=== PATIENT | male | born 1965 | race Native Hawaiian/Other Pacific Islander ===

== ENCOUNTER → 2016-12-02 | Outpatient (CLI) | payer OTHER ==
--- NOTE | 2016-12-04 08:13 | XR ---
EXAMINATION TYPE: XR chest 2V DATE OF EXAM: 12/02/2016 COMPARISON: 09/14/2013 TECHNIQUE: PA and lateral views submitted. HISTORY: Shortness of breath FINDINGS: The lungs are clear and there is no pneumothorax, pleural effusion, or focal pneumonia. Biapical pl eural thickening. Arthropathy shoulders. Degenerative change of the spine. IMPRESSION: 1. No acute process.
== END | disposition home or self-care (01) ==
LOC: RADXRMAIN 12:01
PROVIDERS: ATTEND Internal Medicine
DX: R06.00 Dyspnea, unspecified (principal); R07.9 Chest pain, unspecified
CPT/HCPCS: 71020

== ENCOUNTER 2020-07-27 06:59 | Observation (INO) | payer OTHER ==
[2020-07-27 07:09] VITALS: PULSE 77; RESP 18; TEMP 98.8
[2020-07-27] MEDS ORDERED: KETOROLAC 15 MG/ML 1 ML VIAL IVP STA (07:23)
--- NOTE | 2020-07-27 07:25 | ED ---
General Adult HPI - General Chief complaint: Extremity Injury, Lower Stated complaint: Feet swelling Time Seen by Provider: 07/27/20 07:11 Source: patient, RN notes reviewed Mode of arrival: wheelchair Limitations: no limitations - History of Present Illness Initial comments: This is a 55-year-old male with a necessity benign past medical history states she's had about one week pain and swelling to the lower extremities left more than right he states he is up and down ladders quite a bit sure. She had any injuries and he did state he heard a pop in his left foot prior to the events. He's had swelling and does have somewhat of a rash on both sides his doctor did start him on steroids which did not help. He denies any fevers chills nausea vomiting sweats no known autoimmune disorders other complaints or modifying factors at this time tenderness reported. - Related Data Home Medications Medication Instructions Recorded Confirmed Cetirizine HCl [Zyrtec] 10 mg PO DAILY PRN 07/27/20 07/27/20 Metoprolol Succinate [Toprol XL] 50 mg PO DAILY 07/27/20 07/27/20 methylPREDNISolone Dose Pack See Taper PO DAILY 07/27/20 07/27/20 [Medrol Dose Pack] Allergies Allergy/AdvReac Type Severity Reaction Status Date / Time No Known Allergies Allergy Verified 07/27/20 07:49 Review of Systems ROS Statement: Those systems with pertinent positive or pertinent negative responses have been documented in the HPI. ROS Other: All systems not noted in ROS Statement are negative. Past Medical History Past Medical History: Hyperlipidemia, Hypertension Additional Past Medical History / Comment(s): back pain History of Any Multi-Drug Resistant Organisms: None Reported Past Surgical History: No Surgical Hx Reported Past Psychological History: No Psychological Hx Reported Smoking Status: Current every day smoker, Vaper Past Alcohol Use History: Occasional Past Drug Use History: Marijuana General Exam - General Exam Comments Initial Comments: This is a well-developed sec appearing male who is awake alert oriented 3 Limitations: no limitations General appearance: alert, in no apparent distress Head exam: Present: atraumatic, normocephalic, normal inspection Eye exam: Present: normal appearance, PERRL, EOMI. Absent: scleral icterus, conjunctival injection, periorbital swelling ENT exam: Present: normal exam, mucous membranes moist Neck exam: Present: normal inspection. Absent: tenderness, meningismus, lymphadenopathy Respiratory exam: Present: normal lung sounds bilaterally. Absent: respiratory distress, wheezes, rales, rhonchi, stridor Cardiovascular Exam: Present: regular rate, normal rhythm, normal heart sounds. Absent: systolic murmur, diastolic murmur, rubs, gallop, clicks GI/Abdominal exam: Absent: distended, tenderness, guarding, rebound, rigid Extremities exam: Present: full ROM, tenderness, normal capillary refill, pedal edema, other (Tenderness palpation over both feet especially over the left lung with some increased localized temperature. Some evidence of what appears to be coalescing petechial hemorrhaging no open wound seen at this time. No sensorimotor vascular deficits). Absent: joint swelling, calf tenderness Back exam: Present: normal inspection Neurological exam: Present: alert, oriented X3, CN II-XII intact Psychiatric exam: Present: normal affect, normal mood Skin exam: Present: warm, dry, intact, normal color. Absent: rash Course Vital Signs 07/27/20 07/27/20 07:05 08:57 Temperature 98.8 F Pulse Rate 77 Respiratory 18 18 Rate Blood Pressure 168/108 154/113 O2 Sat by Pulse 99 Oximetry Medical Decision Making - Medical Decision Making I did discuss the findings with the patient and also with Dr. Paz the clinical presentation is consistent with a cellulitis patient will be admitted [facility] and consultation by infectious disease - Lab Data Result diagrams: 07/27/20 07:45 07/27/20 07:45 Lab Results 07/27/20 07/27/20 07/27/20 Range/Units 07:45 07:45 07:45 WBC 12.1 H (3.8-10.6) k/uL RBC 6.50 H (4.30-5.90) m/uL Hgb 14.0 (13.0-17.5) gm/dL Hct 43.5 (39.0-53.0) % MCV 66.9 L (80.0-100.0) fL MCH 21.5 L (25.0-35.0) pg MCHC 32.1 (31.0-37.0) g/dL RDW 15.7 H (11.5-15.5) % Plt Count 223 (150-450) k/uL MPV 7.8 Neutrophils % 65 % Lymphocytes % 22 % Monocytes % 10 % Eosinophils % 2 % Basophils % 0 % Neutrophils # 7.8 H (1.3-7.7) k/uL Lymphocytes # 2.6 (1.0-4.8) k/uL Monocytes # 1.2 H (0-1.0) k/uL Eosinophils # 0.3 (0-0.7) k/uL Basophils # 0.1 (0-0.2) k/uL Hypochromasia Slight Microcytosis Marked Sodium 139 (137-145) mmol/L Potassium 4.1 (3.5-5.1) mmol/L Chloride 107 (98-107) mmol/L Carbon Dioxide 24 (22-30) mmol/L Anion Gap 8 mmol/L BUN 17 (9-20) mg/dL Creatinine 0.86 (0.66-1.25) mg/dL Est GFR (CKD-EPI)AfAm >90 (>60 ml/min/1.73 sqM) Est GFR (CKD-EPI)NonAf >90 (>60 ml/min/1.73 sqM) Glucose 99 (74-99) mg/dL Uric Acid (3.5-8.5) mg/dL Calcium 9.2 (8.4-10.2) mg/dL Magnesium 2.3 (1.6-2.3) mg/dL Total Bilirubin 1.0 (0.2-1.3) mg/dL AST 26 (17-59) U/L ALT 20 (4-49) U/L Alkaline Phosphatase 68 (38-126) U/L Creatine Kinase 99 (55-170) U/L C-Reactive Protein 1.8 H (<1.0) mg/dL NT-Pro-B Natriuret Pep 92 pg/mL Total Protein 7.3 (6.3-8.2) g/dL Albumin 4.1 (3.5-5.0) g/dL 07/27/20 Range/Units 07:45 WBC (3.8-10.6) k/uL RBC (4.30-5.90) m/uL Hgb (13.0-17.5) gm/dL Hct (39.0-53.0) % MCV (80.0-100.0) fL MCH (25.0-35.0) pg MCHC (31.0-37.0) g/dL RDW (11.5-15.5) % Plt Count (150-450) k/uL MPV Neutrophils % % Lymphocytes % % Monocytes % % Eosinophils % % Basophils % % Neutrophils # (1.3-7.7) k/uL Lymphocytes # (1.0-4.8) k/uL Monocytes # (0-1.0) k/uL Eosinophils # (0-0.7) k/uL Basophils # (0-0.2) k/uL Hypochromasia Microcytosis Sodium (137-145) mmol/L Potassium (3.5-5.1) mmol/L Chloride (98-107) mmol/L Carbon Dioxide (22-30) mmol/L Anion Gap mmol/L BUN (9-20) mg/dL Creatinine (0.66-1.25) mg/dL Est GFR (CKD-EPI)AfAm (>60 ml/min/1.73 sqM) Est GFR (CKD-EPI)NonAf (>60 ml/min/1.73 sqM) Glucose (74-99) mg/dL Uric Acid 5.4 (3.5-8.5) mg/dL Calcium (8.4-10.2) mg/dL Magnesium (1.6-2.3) mg/dL Total Bilirubin (0.2-1.3) mg/dL AST (17-59) U/L ALT (4-49) U/L Alkaline Phosphatase (38-126) U/L Creatine Kinase (55-170) U/L C-Reactive Protein (<1.0) mg/dL NT-Pro-B Natriuret Pep pg/mL Total Protein (6.3-8.2) g/dL Albumin (3.5-5.0) g/dL - Radiology Data Radiology results: image reviewed (Imaging reviewed no acute findings evidence of a calcaneal spur) Disposition Clinical Impression: Cellulitis of left foot, Left foot pain, Failure of outpatient treatment Disposition: ADMITTED IP TO THIS [facility] Condition: Fair Referrals: Robert Richard MD [Primary Care Provider] - 1-2 days
--- NOTE | 2020-07-27 08:18 | XR ---
Left foot HISTORY: Pain and swelling 3 views of the left foot Bone mineralization, joint spaces and alignment are maintained. There is a plantar calcaneal spur. No fracture or dislocation. IMPRESSION: Plantar calcaneal spur
[2020-07-27 08:24] LABS: ALT 20 U/L (4-49); AST 26 U/L (17-59); African American GFR (CKD) >90 (>60 ml/min/1.73 sqM); Albumin 4.1 g/dL (3.5-5.0); Alkaline Phosphatase 68 U/L (38-126); Anion Gap 8 mmol/L; Blood Urea Nitrogen 17 mg/dL (9-20); C Reactive Protein 1.8 mg/dL (<1.0); Calcium 9.2 mg/dL (8.4-10.2); Carbon Dioxide 24 mmol/L (22-30); Chloride 107 mmol/L (98-107); Creatine Kinase 99 U/L (55-170); Glucose 99 mg/dL (74-99); Magnesium 2.3 mg/dL (1.6-2.3); Non-African American GFR(CKD) >90 (>60 ml/min/1.73 sqM); Potassium 4.1 mmol/L (3.5-5.1); Sodium 139 mmol/L (137-145); Total Protein 7.3 g/dL (6.3-8.2)
[2020-07-27 08:42] LABS: Basophils # (A) 0.1 k/uL (0-0.2); Basophils % (A) 0 %; Eosinophils # (A) 0.3 k/uL (0-0.7); Eosinophils % (A) 2 %; HCT 43.5 % (39.0-53.0); Hypochromasia Slight; Lymphocytes # (A) 2.6 k/uL (1.0-4.8); Lymphocytes % (A) 22 %; MCH 21.5 pg (25.0-35.0); MCHC 32.1 g/dL (31.0-37.0); MCV 66.9 fL (80.0-100.0); Mean Platelet Volume 7.8; Microcytosis Marked; Monocytes # (A) 1.2 k/uL (0-1.0); Monocytes % (A) 10 %; Neutrophils # (A) 7.8 k/uL (1.3-7.7); Neutrophils % (A) 65 %; Platelet Count 223 k/uL (150-450); RDW 15.7 % (11.5-15.5); WBC 12.1 k/uL (3.8-10.6)
[2020-07-27] MEDS ORDERED: PIPERACILLIN-TAZOBACTAM 3.375 GM in SODIUM CHLORIDE 0.9% 100 ML IVPB STA (09:10)
[2020-07-27] MEDS ORDERED: NALOXONE 0.4 MG/ML 1 ML VIAL IV PRN (09:17)
[2020-07-27] MEDS ORDERED: KETOROLAC 15 MG/ML 1 ML VIAL IVP PRN (09:17)
[2020-07-27] MEDS ORDERED: SODIUM CHLORIDE 0.9% 1,000 ML IV SCH (09:30)
[2020-07-27] MEDS ORDERED: METOPROLOL SUCCINATE (ER) 50 MG TAB.ER.24H PO STA (09:40)
--- NOTE | 2020-07-27 10:12 | P.HPIM ---
History of Present Illness This is a pleasant 55 years old male with past medical history of hypertension, hyperlipidemia, chronic back pain, nicotine dependence. Presents with bilateral with pain and swelling for about one week. Dr. Reddy his PCP prescribed him ALLERGY medication, Medrol pack. With no improvement and his pain and swelling getting worse he has petechial rash in the leg and feet, more confluent on the feet, however his left leg is swollen and warm He denies chest pain or dyspnea or headache or weakness or numbness. Abdominalin. No change in urine or bowel habits. no fever Vitas looks stable. showing mild leukocytosis of 12.1 K, hemoglobin normal at 14.0, platelet normal at 223K. Rest of BMP, liver enzymes are unremarkable. C-reactive protein is slightly up at 1.8. Patient was admitted from emergency room for cellulitis with infectious disease consult, he was started on Zosyn. Review of Systems CONSTITUTIONAL: No fever, no malaise, no fatigue. HEENT: No recent visual problems or hearing problems. Denied any sore throat. CARDIOVASCULAR: No orthopnea, PND, no palpitations, no syncope. PULMONARY: No shortness of breath, no cough, no hemoptysis. GASTROINTESTINAL: No diarrhea, no nausea, no vomiting, no abdominal pain. Normoactive bowel sounds. NEUROLOGICAL: No headaches, no weakness, no numbness. HEMATOLOGICAL: Denies any bleeding or petechiae. GENITOURINARY: Denies any burning micturition, frequency, or urgency. MUSCULOSKELETAL/RHEUMATOLOGICAL: Denies any joint pain, swelling, or any muscle pain. ENDOCRINE: Denies any polyuria or polydipsia. Past Medical History Past Medical History: Hyperlipidemia, Hypertension Additional Past Medical History / Comment(s): back pain History of Any Multi-Drug Resistant Organisms: None Reported Past Surgical History: No Surgical Hx Reported Past Psychological History: No Psychological Hx Reported Smoking Status: Current every day smoker, Vaper Past Alcohol Use History: Occasional Past Drug Use History: Marijuana Medications and Allergies Home Medications Medication Instructions Recorded Confirmed Type Cetirizine HCl [Zyrtec] 10 mg PO DAILY PRN 07/27/20 07/27/20 History Metoprolol Succinate [Toprol XL] 50 mg PO DAILY 07/27/20 07/27/20 History methylPREDNISolone Dose Pack See Taper PO DAILY 07/27/20 07/27/20 History [Medrol Dose Pack] Allergies Allergy/AdvReac Type Severity Reaction Status Date / Time No Known Allergies Allergy Verified 07/27/20 07:49 Physical Exam Vitals: Vital Signs Temp Pulse Resp BP Pulse Ox 07/27/20 08:57 18 154/113 07/27/20 07:05 98.8 F 77 18 168/108 99 Intake and Output 07/26/20 07/27/20 07/27/20 22:59 06:59 14:59 Other: Weight 77.564 kg GENERAL: The patient is alert and oriented x3, not in any acute distress. Well developed, well nourished. HEENT: Pupils are round and equally reacting to light. EOMI. No scleral icterus. No conjunctival pallor. Normocephalic, atraumatic. No pharyngeal erythema. No thyromegaly. CARDIOVASCULAR: S1 and S2 present. No murmurs, rubs, or gallops. PULMONARY: Chest is clear to auscultation, no wheezing or crackles. ABDOMEN: Soft, nontender, nondistended, normoactive bowel sounds. No palpable organomegaly. MUSCULOSKELETAL: No joint swelling or deformity. -EXTREMITIES: No cyanosis, clubbing, or pedal edema. he has petechial rash in the leg and feet, more confluent on the feet, however his left leg is swollen and warm NEUROLOGICAL: Gross neurological examination did not reveal any focal deficits. SKIN: No rashes. No petechiae Results CBC & Chem 7: 07/27/20 07:45 07/27/20 07:45 Labs: Abnormal Lab Results - Last 24 Hours (Table) 07/27/20 07/27/20 Range/Units 07:45 07:45 WBC 12.1 H (3.8-10.6) k/uL RBC 6.50 H (4.30-5.90) m/uL MCV 66.9 L (80.0-100.0) fL MCH 21.5 L (25.0-35.0) pg RDW 15.7 H (11.5-15.5) % Neutrophils # 7.8 H (1.3-7.7) k/uL Monocytes # 1.2 H (0-1.0) k/uL C-Reactive Protein 1.8 H (<1.0) mg/dL Assessment and Plan Assessment: Possible Left foot cellulitis. Rule out DVT Bilateral feet petechial rash, more confluent in the feet Hypertension Hyperlipidemia Chronic back pain Nicotine dependence, patient consult. He declined nicotine patch Plan: She is a pleasant 55 years old male who presents with bilateral petechial rash and left leg swelling and tenderness suspicious for cellulitis. Patient was started on Zosyn. Infectious disease team was consulted. We'll check Doppler of the lower extremity. We will check ESR and throatcalcitonin, also check [place] and hemoglobin A1c Labs and medication were reviewed.. Continue same treatment. Continue with symptomatic treatment. Resume home medication. Monitor lytes and vitals. DVT and GI prophylaxis. Further recommendations depends on the clinical course of the patient DVT prophylaxis: Subcutaneous Lovenox GI Prophylaxis: Pepcid PT/OT: Pending Prognosis is guarded
[2020-07-27 11:02] VITALS: BP 165/111
--- NOTE | 2020-07-27 11:27 | US ---
EXAMINATION TYPE: US venous doppler duplex LE DATE OF EXAM: 07/27/2020 10:48 AM COMPARISON: NONE CLINICAL HISTORY: Rule out DVT. Left leg pain. Left ankle swelling per patient. No redness. No hx blood clots. Not on blood thinners. SIDE PERFORMED: Bilateral TECHNIQUE: The lower extremity deep venous system is examined utilizing real time linear array sonog stella with graded compression, doppler sonography and color-flow sonography. VESSELS IMAGED: Common Femoral Vein Deep Femoral Vein Greater Saphenous Vein * Femoral Vein Popliteal Vein Small Saphenous Vein * Proximal Calf Veins (* superficial vessels) There is normal flow, compressibility, vascular waveforms. Right Leg: Negative for DVT Left Leg: Negative for DVT IMPRESSION: No evident deep venous thrombosis at the knees or central to the knees, follow-up as jean pierre skaggs
[2020-07-27 11:55] LABS: Reticulocyte % 3.6 % (0.5-2.0)
[2020-07-27 12:43] LABS: D-Dimer 2.41 mg/L FEU (<0.60); INR 0.9 (<1.2); Partial Thromboplastin Time 22.8 sec (22.0-30.0); Prothrombin Time 9.9 sec (9.0-12.0)
[2020-07-27] MEDS ORDERED: PIPERACILLIN-TAZOBACTAM 3.375 GM in SODIUM CHLORIDE 0.9% 100 ML IVPB SCH (17:00)
[2020-07-27 17:26] LABS: Ferritin 182.3 ng/mL (22.0-322.0)
[2020-07-27 17:31] LABS: % Iron Saturation 44.32 (15.00-50.00); Folate, Serum 12.3 ng/mL; Iron 121 ug/dL (65-175); LDH 151 U/L (120-246); Rheumatoid Factor, Qnt <4 IU/mL (0-15); Total Iron Binding Capacity 273 ug/dL (228-460)
[2020-07-27 18:13] LABS: Procalcitonin 0.05 ng/mL (0.02-0.09)
[2020-07-27 18:31] LABS: Hemoglobin A1C 5.4 % (4.0-6.0)
[2020-07-27] MEDS ORDERED: FAMOTIDINE 20 MG/2 ML VIAL IV SCH (21:00)
--- NOTE | 2020-07-27 21:37 | P.CONS ---
History of Present Illness - Reason for Consult Consult date: 07/27/20 Walker Bilateral Requesting physician: Ranjit Paz - History of Present Illness Asked to evaluate patient by Dr. Paz regarding Walker Review of Systems All systems: negative Constitutional: Reports as per HPI Past Medical History Past Medical History: Hyperlipidemia, Hypertension Additional Past Medical History / Comment(s): back pain History of Any Multi-Drug Resistant Organisms: None Reported Past Surgical History: No Surgical Hx Reported Past Psychological History: No Psychological Hx Reported Smoking Status: Current every day smoker, Vaper Past Alcohol Use History: Occasional Past Drug Use History: Marijuana Medications and Allergies Home Medications Medication Instructions Recorded Confirmed Type Cetirizine HCl [Zyrtec] 10 mg PO DAILY PRN 07/27/20 07/27/20 History Metoprolol Succinate [Toprol XL] 50 mg PO DAILY 07/27/20 07/27/20 History methylPREDNISolone Dose Pack See Taper PO DAILY 07/27/20 07/27/20 History [Medrol Dose Pack] Allergies Allergy/AdvReac Type Severity Reaction Status Date / Time No Known Allergies Allergy Verified 07/27/20 07:49 Physical Exam Vitals: Vital Signs Temp Pulse Resp BP Pulse Ox 07/27/20 10:59 165/111 07/27/20 08:57 18 154/113 07/27/20 07:05 98.8 F 77 18 168/108 99 Intake and Output 07/26/20 07/27/20 07/27/20 22:59 06:59 14:59 Other: Weight 77.564 kg - Constitutional General appearance: cooperative - EENT Eyes: EOMI - Neck Neck: normal ROM - Respiratory Respiratory: bilateral: CTA - Cardiovascular Rhythm: regular - Gastrointestinal General gastrointestinal: soft - Integumentary BLE vascular superficial rash Integumentary: pale, rash - Neurologic Neurologic: CNII-XII intact - Musculoskeletal Musculoskeletal: generalized weakness, strength equal bilaterally - Psychiatric Psychiatric: A&O x's 3, appropriate affect Results CBC & Chem 7: 07/27/20 07:45 07/27/20 07:45 Labs: Abnormal Lab Results - Last 24 Hours (Table) 07/27/20 07/27/20 Range/Units 07:45 07:45 WBC 12.1 H (3.8-10.6) k/uL RBC 6.50 H (4.30-5.90) m/uL MCV 66.9 L (80.0-100.0) fL MCH 21.5 L (25.0-35.0) pg RDW 15.7 H (11.5-15.5) % Neutrophils # 7.8 H (1.3-7.7) k/uL Monocytes # 1.2 H (0-1.0) k/uL C-Reactive Protein 1.8 H (<1.0) mg/dL Venous US: report reviewed Assessment and Plan Plan: Assessment and Recommendations: Microcytosis without Anemia: - Commonly seen in traits such as thalesemia, work-up ordered - Rec further evaluation of abdominal imaging to assess liver hepatomegaly Bilateral LE Rash: - ?Vascular, petechaie appearance
[2020-07-28] MEDS ORDERED: ENOXAPARIN 40 MG/0.4 ML SYRINGE SQ SCH (09:00)
[2020-07-28 14:37] LABS: C-ANCA <1:20 Titer (<1:20)
== END 2020-07-27 12:46 | disposition left against medical advice (07) ==
LOC: EC 06:59 → 6NMEDSUR 09:35
PROVIDERS: ADMIT Internal Medicine; ATTEND Internal Medicine
DX: L03.116 Cellulitis of left lower limb (principal); I10 Essential (primary) hypertension; E78.5 Hyperlipidemia, unspecified; Z53.29 Procedure and treatment not carried out because of patient's decision for other reasons; Z20.822 Contact with and (suspected) exposure to COVID-19; R21 Rash and other nonspecific skin eruption; R23.3 Spontaneous ecchymoses; G89.29 Other chronic pain; M54.9 Dorsalgia, unspecified; F17.290 Nicotine dependence, other tobacco product, uncomplicated; Z79.899 Other long term (current) drug therapy; Z86.59 Personal history of other mental and behavioral disorders
CPT/HCPCS: 96365; 96375; 99285; 36415; 86255; 83921; 85379; 83880; 80053; 85652; 82607; 82728; 82550; 82746; 83021; 83540; 83550; 83615; 83735; 84550; 85025; 85610; 85045; 85730; 86140; 86431; 87040; 86038; 83036; 84145; 87635; 73630; 93970; G0378; J2543; J1885

== ENCOUNTER 2020-07-30 17:22 | Inpatient (IN) | payer OTHER ==
[2020-07-30] MEDS ORDERED: cefTRIAXone IN SWFI 1,000 MG/10 ML SYRINGE IVP STA (19:05)
[2020-07-30] MEDS ORDERED: SODIUM CHLORIDE 0.9% 1,000 ML IV STA (19:06)
[2020-07-30] MEDS ORDERED: ACETAMINOPHEN TAB 500 MG TAB PO STA (19:16)
[2020-07-30] MEDS ORDERED: PIPERACILLIN-TAZOBACTAM 3.375 GM in SODIUM CHLORIDE 0.9% 100 ML IVPB STA (19:18)
[2020-07-30] MEDS ORDERED: VANCOMYCIN IV PER PHARMACY 1 EACH MISC MISCELLANE PRN (19:20)
--- NOTE | 2020-07-30 19:21 | ED ---
Skin/Abscess/FB HPI - General Chief complaint: Skin/Abscess/Foreign Body Stated complaint: bilat feet swelling, rash up legs Time Seen by Provider: 07/30/20 18:51 Source: patient Mode of arrival: wheelchair Limitations: no limitations - History of Present Illness Initial comments: 55-year-old male presents to emergency Department with a chief complaint of leg pain and a rash. Patient reports about 9 days ago he developed swelling and pain in the left leg particularly which has also spread to the right. Patient reports erythema at the left leg and simultaneously began to develop a superimposed rash she reports now the rash has moved proximally along the lower extremities and has some spotting along the torso and arms. Reports chills but denies any fevers. States he was in emergency department 3 days ago and was advised to stay but he left AMA. Patient reports there is tightness in the calves. But denies any chest pain or shortness of breath. - Related Data Home Medications Medication Instructions Recorded Confirmed Cetirizine HCl [Zyrtec] 10 mg PO DAILY PRN 07/27/20 07/30/20 Metoprolol Succinate [Toprol XL] 50 mg PO DAILY 07/27/20 07/30/20 methylPREDNISolone Dose Pack See Taper PO DAILY 07/27/20 07/30/20 [Medrol Dose Pack] Cephalexin [Keflex] 500 mg PO Q6H 07/30/20 07/30/20 Cyclobenzaprine [Flexeril] 10 mg PO BID PRN 07/30/20 07/30/20 Allergies Allergy/AdvReac Type Severity Reaction Status Date / Time No Known Allergies Allergy Verified 07/30/20 19:46 Review of Systems ROS Statement: Those systems with pertinent positive or pertinent negative responses have been documented in the HPI. ROS Other: All systems not noted in ROS Statement are negative. Past Medical History Past Medical History: Hyperlipidemia, Hypertension Additional Past Medical History / Comment(s): back pain History of Any Multi-Drug Resistant Organisms: None Reported Past Surgical History: No Surgical Hx Reported Past Psychological History: No Psychological Hx Reported Smoking Status: Current every day smoker, Vaper Past Alcohol Use History: Occasional Past Drug Use History: Marijuana General Exam Limitations: no limitations General appearance: alert, in no apparent distress Head exam: Present: atraumatic, normocephalic, normal inspection Eye exam: Present: normal appearance, PERRL, EOMI Pupils: Present: normal accommodation ENT exam: Present: normal exam, normal oropharynx, mucous membranes moist, TM's normal bilaterally, normal external ear exam Neck exam: Present: normal inspection, full ROM. Absent: tenderness Respiratory exam: Present: normal lung sounds bilaterally. Absent: respiratory distress, wheezes, rales, rhonchi Cardiovascular Exam: Present: regular rate, normal rhythm, normal heart sounds. Absent: systolic murmur GI/Abdominal exam: Present: soft, tenderness (Mild periumbilical tenderness). Absent: distended Extremities exam: Present: full ROM, tenderness (Tenderness of the left feet. Bilateral calf tenderness as well), normal capillary refill, joint swelling (left ankle), calf tenderness (Bilateral), other (Palpable DP and PT bilaterally). Absent: normal inspection (Swelling of the left ankle and foot. Cellulitic changes in bilateral lower extremities with a superimposed petechial rash that appears to be spreading proximally.), pedal edema Back exam: Present: normal inspection, full ROM. Absent: tenderness, CVA tender ness (R), CVA tenderness (L) Neurological exam: Present: alert, oriented X3 Psychiatric exam: Present: normal affect, normal mood Skin exam: Present: warm, dry, intact, normal color Course Vital Signs 07/30/20 17:52 Temperature 100.8 F H Pulse Rate 81 Respiratory 20 Rate Blood Pressure 149/95 O2 Sat by Pulse 99 Oximetry Medical Decision Making - Medical Decision Making 55-year-old male presents to emergency Department with a chief complaint of leg pain and a rash. On physical examination, patient has cellulitis of the lower extremities along with swelling in the left foot/ankle. There is also a s uperimposed petechial rash that seems to be moving proximally and is also noted sporadically on the torso and arms. Patient denies any preexistent hematologic or autoimmune conditions. Patient initially febrile arrival given antipyretics. Medical records reviewed and the patient was admitted 3 days ago for cellulitis. Will confirm an due to repeat admission and will start him on Zosyn and vancomycin. He did have elevation of white blood cells from 12k to 15k, currently. Blood cultures are pending. Elevation in CRP to 2.9. ESR pending. X-ray of the foot pending. Bilateral lower extremity ultrasound unremarkable. I spoke with Dr. Sheet who will admit patient for further medical management. Case discussed with Dr.Khanpara CRUZ on consult - Lab Data Result diagrams: 07/30/20 19:32 07/30/20 19:32 Lab Results 07/30/20 07/30/20 Range/Units 19:32 19:32 WBC 15.2 H (3.8-10.6) k/uL RBC 6.56 H (4.30-5.90) m/uL Hgb 13.7 (13.0-17.5) gm/dL Hct 43.6 (39.0-53.0) % MCV 66.4 L (80.0-100.0) fL MCH 20.9 L (25.0-35.0) pg MCHC 31.4 (31.0-37.0) g/dL RDW 15.5 (11.5-15.5) % Plt Count 267 (150-450) k/uL MPV 8.3 Neutrophils % 70 % Lymphocytes % 16 % Monocytes % 9 % Eosinophils % 3 % Basophils % 0 % Neutrophils # 10.6 H (1.3-7.7) k/uL Lymphocytes # 2.4 (1.0-4.8) k/uL Monocytes # 1.4 H (0-1.0) k/uL Eosinophils # 0.5 (0-0.7) k/uL Basophils # 0.1 (0-0.2) k/uL Hypochromasia Slight Microcytosis Marked ESR 5 (0-15) mm/hr Sodium 137 (137-145) mmol/L Potassium 4.6 (3.5-5.1) mmol/L Chloride 104 (98-107) mmol/L Carbon Dioxide 25 (22-30) mmol/L Anion Gap 8 mmol/L BUN 15 (9-20) mg/dL Creatinine 0.77 (0.66-1.25) mg/dL Est GFR (CKD-EPI)AfAm >90 (>60 ml/min/1.73 sqM) Est GFR (CKD-EPI)NonAf >90 (>60 ml/min/1.73 sqM) Glucose 95 (74-99) mg/dL Calcium 9.3 (8.4-10.2) mg/dL Total Bilirubin 0.8 (0.2-1.3) mg/dL AST 25 (17-59) U/L ALT 17 (4-49) U/L Alkaline Phosphatase 71 (38-126) U/L C-Reactive Protein 2.9 H (<1.0) mg/dL Total Protein 7.2 (6.3-8.2) g/dL Albumin 4.0 (3.5-5.0) g/dL Disposition Clinical Impression: Cellulitis, Petechial rash Disposition: ADMITTED IP TO THIS HOSP Condition: Fair Is patient prescribed a controlled substance at d/c from ED?: No Referrals: Robert Richard MD [Primary Care Provider] - 1-2 days Time of Disposition: 21:05
[2020-07-30 19:44] LABS: Basophils # (A) 0.1 k/uL (0-0.2); Basophils % (A) 0 %; Eosinophils # (A) 0.5 k/uL (0-0.7); Eosinophils % (A) 3 %; HCT 43.6 % (39.0-53.0); HGB 13.7 gm/dL (13.0-17.5); Hypochromasia Slight; Lymphocytes # (A) 2.4 k/uL (1.0-4.8); Lymphocytes % (A) 16 %; MCH 20.9 pg (25.0-35.0); MCHC 31.4 g/dL (31.0-37.0); MCV 66.4 fL (80.0-100.0); Mean Platelet Volume 8.3; Microcytosis Marked; Monocytes # (A) 1.4 k/uL (0-1.0); Monocytes % (A) 9 %; Neutrophils # (A) 10.6 k/uL (1.3-7.7); Neutrophils % (A) 70 %; Platelet Count 267 k/uL (150-450); RBC 6.56 m/uL (4.30-5.90); RDW 15.5 % (11.5-15.5); WBC 15.2 k/uL (3.8-10.6)
[2020-07-30 19:59] LABS: ALT 17 U/L (4-49); AST 25 U/L (17-59); African American GFR (CKD) >90 (>60 ml/min/1.73 sqM); Alkaline Phosphatase 71 U/L (38-126); Anion Gap 8 mmol/L; Blood Urea Nitrogen 15 mg/dL (9-20); C Reactive Protein 2.9 mg/dL (<1.0); Calcium 9.3 mg/dL (8.4-10.2); Carbon Dioxide 25 mmol/L (22-30); Chloride 104 mmol/L (98-107); Glucose 95 mg/dL (74-99); Non-African American GFR(CKD) >90 (>60 ml/min/1.73 sqM); Potassium 4.6 mmol/L (3.5-5.1); Sodium 137 mmol/L (137-145); Total Bilirubin 0.8 mg/dL (0.2-1.3); Total Protein 7.2 g/dL (6.3-8.2)
[2020-07-30] MEDS ORDERED: VANCOMYCIN 1,750 MG in SODIUM CHLORIDE 0.9% 500 ML 500 ML IVPB ONE (20:00)
[2020-07-30] MEDS ORDERED: VANCOMYCIN 1,500 MG in SODIUM CHLORIDE 0.9% 250 ML IVPB ONE (20:00)
--- NOTE | 2020-07-30 20:28 | US ---
EXAMINATION TYPE: US venous doppler duplex LE BI DATE OF EXAM: 07/30/2020 7:07 PM COMPARISON: US 3 days prior CLINICAL HISTORY: calf pain. SIDE PERFORMED: Bilateral TECHNIQUE: The lower extremity deep venous system is examined utilizing real time linear array sonog stella with graded compression, doppler sonography and color-flow sonography. VESSELS IMAGED: Common Femoral Vein Deep Femoral Vein Greater Saphenous Vein * Femoral Vein Popliteal Vein Small Saphenous Vein * Proximal Calf Veins (* superficial vessels) Right Leg: Appears negative for DVT Left Leg: Appears negative for DVT IMPRESSION: No evidence of deep vein thrombosis in both legs.
[2020-07-30 20:37] LABS: Erythrocyte Sedimentation Rate 5 mm/hr (0-15)
[2020-07-30] MEDS ORDERED: ACETAMINOPHEN TAB 325 MG TAB PO PRN (21:00)
[2020-07-30] MEDS ORDERED: IBUPROFEN 400 MG TAB PO PRN (21:00)
[2020-07-30] MEDS ORDERED: LORazepam 2 MG/ML INJ IV PRN (21:00)
[2020-07-30] MEDS ORDERED: oxyCODONE-APAP 5-325MG 1 EACH TAB PO PRN (21:00)
[2020-07-30] MEDS ORDERED: NALOXONE 0.4 MG/ML 1 ML VIAL IV PRN (21:00)
[2020-07-30] MEDS: MORPHINE SULFATE 4 MG/ML SYRINGE IV PRN (21:22)
--- NOTE | 2020-07-30 21:39 | XR ---
EXAMINATION TYPE: XR foot complete LT DATE OF EXAM: 07/30/2020 COMPARISON: 07/27/2020 HISTORY: Cellulitis TECHNIQUE: 3 views FINDINGS: There is plantar calcaneal spurring. There is soft tissue swelling of the forefoot. I see n o fracture nor dislocation. There are no erosions. IMPRESSION: Soft tissue swelling. No fracture. Calcaneal spurring. Soft tissue swelling is new compar ed to old exam.
[2020-07-30] MEDS: SODIUM CHLORIDE 0.9% 1,000 ML IV SCH (22:00)
[2020-07-30 23:00] LABS: INR 0.9 (<1.2); Partial Thromboplastin Time 22.6 sec (22.0-30.0); Prothrombin Time 9.8 sec (9.0-12.0)
[2020-07-30] MEDS ORDERED: CYCLOBENZAPRINE 10 MG TAB PO PRN (23:27)
[2020-07-31] MEDS: VANCOMYCIN 1,500 MG in SODIUM CHLORIDE 0.9% 250 ML IVPB SCH ×3 (04:44→21:04)
[2020-07-31] MEDS: MORPHINE SULFATE 4 MG/ML SYRINGE IV PRN ×2 (04:49→13:36)
[2020-07-31 06:54] LABS: African American GFR (CKD) >90 (>60 ml/min/1.73 sqM); Anion Gap 4 mmol/L; Blood Urea Nitrogen 15 mg/dL (9-20); Calcium 8.6 mg/dL (8.4-10.2); Carbon Dioxide 27 mmol/L (22-30); Chloride 105 mmol/L (98-107); Glucose 95 mg/dL (74-99); Non-African American GFR(CKD) >90 (>60 ml/min/1.73 sqM); Potassium 4.6 mmol/L (3.5-5.1); Sodium 136 mmol/L (137-145)
[2020-07-31] MEDS: METOPROLOL SUCCINATE (ER) 50 MG TAB.ER.24H PO SCH (08:45)
[2020-07-31] MEDS: HEPARIN SODIUM,PORCINE/PF 5,000 UNIT/0.5 ML SYRINGE SQ SCH ×2 (08:46→21:11)
[2020-07-31] MEDS ORDERED: FAMOTIDINE 20 MG/2 ML VIAL IV SCH (09:00)
--- NOTE | 2020-07-31 11:52 | P.HPIM ---
History of Present Illness This is a pleasant 55 years old male with past medical history of hypertension, hyperlipidemia, chronic back pain, nicotine dependence. Presents with bilateral with pain and swelling for about one week. Dr. Richard his PCP prescribed him ALLERGY medication, Medrol pack. With no improvement and his pain and swelling getting worse he has petechial rash in the leg and feet, more confluent on the feet, however his left leg is swollen and warm. He had mild leukocytosis of 12.1 K. Patient was admitted from emergency room for cellulitis with infectious disease consult, he was started on Zosyn. However patient signed himself out same day. She comes back today complaining from worsening pain and swelling in his left leg and more especially left foot. Also was complaining from worsening rash which was in his lower extremity and mainly in the feet 3 days ago now is extending into the thigh and groin, lower abdomen and upper extremity especially in the forearms and antecubital fossa. No mouth ulcers or rash. No blurred vision. No other complaints. No chest pain or dyspnea or coughing. No abdominal pain or nausea vomiting. No headache or weakness or numbness or blurred vision. No slurred speech. No fever Patient is complaining of from constipation Patient is stable hemodynamically, blood pressure on the high side 165/100. Labs showing worsening leukocytosis of 12 up to 15.28. Hemoglobin normal. Platelets are normal at 267K.. INR is 0.9. BMP and liver enzymes were unremarkable. Coronal virus not detected. Protocol Stephanie and was normal last time at 0.05. Serology disease like C-ANCA AND P-ANCA are negative, CLINTON negative, rheumatoid factor is negative. showing , hemoglobin normal at 14.0, platelet normal at 223K. Rest of BMP, liver enzymes are unremarkable. C-reactive protein is slightly up at 1.8. In the emergency room patient was started on IV vancomycin and 1 time dose of Zosyn and 1 time dose of Rocephin. Review of Systems CONSTITUTIONAL: No fever, no malaise, no fatigue. HEENT: No recent visual problems or hearing problems. Denied any sore throat. CARDIOVASCULAR: No orthopnea, PND, no palpitations, no syncope. PULMONARY: No shortness of breath, no cough, no hemoptysis. GASTROINTESTINAL: No diarrhea, no nausea, no vomiting, no abdominal pain. Normoactive bowel sounds. NEUROLOGICAL: No headaches, no weakness, no numbness. HEMATOLOGICAL: Denies any bleeding or petechiae. GENITOURINARY: Denies any burning micturition, frequency, or urgency. MUSCULOSKELETAL/RHEUMATOLOGICAL: Denies any joint pain, swelling, or any muscle pain. ENDOCRINE: Denies any polyuria or polydipsia. Past Medical History Past Medical History: Hyperlipidemia, Hypertension Additional Past Medical History / Comment(s): back pain History of Any Multi-Drug Resistant Organisms: None Reported Past Surgical History: No Surgical Hx Reported Past Psychological History: No Psychological Hx Reported Smoking Status: Current every day smoker, Vaper Past Alcohol Use History: Occasional Past Drug Use History: Marijuana Medications and Allergies Home Medications Medication Instructions Recorded Confirmed Type Cetirizine HCl [Zyrtec] 10 mg PO DAILY PRN 07/27/20 07/30/20 History Metoprolol Succinate [Toprol XL] 50 mg PO DAILY 07/27/20 07/30/20 History methylPREDNISolone Dose Pack See Taper PO DAILY 07/27/20 07/30/20 History [Medrol Dose Pack] Cephalexin [Keflex] 500 mg PO Q6H 07/30/20 07/30/20 History Cyclobenzaprine [Flexeril] 10 mg PO BID PRN 07/30/20 07/30/20 History Allergies Allergy/AdvReac Type Severity Reaction Status Date / Time No Known Allergies Allergy Verified 07/30/20 19:46 Physical Exam Vitals: Vital Signs Temp Pulse Resp BP Pulse Ox 07/31/20 11:00 77 16 165/100 99 07/31/20 09:00 75 18 170/110 97 07/31/20 08:00 71 18 97 07/31/20 07:00 74 18 184/104 97 07/31/20 06:00 98.8 F 64 18 180/103 99 07/31/20 05:00 60 20 169/90 97 07/31/20 04:00 98.4 F 76 20 179/89 98 07/31/20 03:00 90 20 139/92 97 07/31/20 02:00 90 18 144/90 97 07/30/20 22:31 98.1 F 96 16 148/97 98 07/30/20 17:52 100.8 F H 81 20 149/95 99 Intake and Output 07/30/20 07/31/20 07/31/20 22:59 06:59 14:59 Other: Weight 77.564 kg GENERAL: The patient is alert and oriented x3, not in any acute distress. Well developed, well nourished. HEENT: Pupils are round and equally reacting to light. EOMI. No scleral icterus. No conjunctival pallor. Normocephalic, atraumatic. No pharyngeal erythema. No thyromegaly. CARDIOVASCULAR: S1 and S2 present. No murmurs, rubs, or gallops. PULMONARY: Chest is clear to auscultation, no wheezing or crackles. ABDOMEN: Soft, nontender, nondistended, normoactive bowel sounds. No palpable organomegaly. MUSCULOSKELETAL: No joint swelling or deformity. EXTREMITIES: No cyanosis, clubbing, or pedal edema. Left foot is swollen and to a lesser degree the left leg, both are warm NEUROLOGICAL: Gross neurological examination did not reveal any focal deficits. -SKIN: Critical rashes, mainly in the extremities and the lower extremity more than the upper extremity, with the total amount in the lower abdomen. no itching Results CBC & Chem 7: 07/30/20 19:32 07/31/20 06:11 Labs: Abnormal Lab Results - Last 24 Hours (Table) 07/30/20 07/30/20 07/31/20 Range/Units 19:32 19:32 06:11 WBC 15.2 H (3.8-10.6) k/uL RBC 6.56 H (4.30-5.90) m/uL MCV 66.4 L (80.0-100.0) fL MCH 20.9 L (25.0-35.0) pg Neutrophils # 10.6 H (1.3-7.7) k/uL Monocytes # 1.4 H (0-1.0) k/uL Sodium 136 L (137-145) mmol/L C-Reactive Protein 2.9 H (<1.0) mg/dL Assessment and Plan Assessment: Left leg swelling, warmth and tenderness suspicious for cellulitis Progressive petechial rash. Hypertension Hyperlipidemia Chronic back pain Nicotine dependence, patient councelled. He declined nicotine patch Plan: This is a pleasant 55 years old male who presents with left leg swelling and w arm suspicious for cellulitis associated with progressive petechial-like rash. Continue with antibiotics, but infectious disease team. We will consult hematology Labs and medication were reviewed.. Continue same treatment. Continue with symptomatic treatment. Resume home medication. Monitor lytes and vitals. DVT and GI prophylaxis. Further recommendationsas per clinical course of the patien t DVT prophylaxis: Subcutaneous heparin GI Prophylaxis: Pepcid PT/OT: Pending Prognosis is guarded
[2020-07-31 12:12] LABS: Basophils # (A) 0.04 X 10*3/uL (0.00-0.10); Basophils % (A) 0.3 %; Eosinophils # (A) 0.52 X 10*3/uL (0.04-0.35); Eosinophils % (A) 3.4 %; HGB 12.5 g/dL (13.0-17.0); Lymphocytes # (A) 2.08 X 10*3/uL (0.90-5.00); Lymphocytes % (A) 13.7 %; MCH 20.6 pg (27.0-32.0); MCHC 30.5 g/dL (32.0-37.0); MCV 67.5 fL (80.0-97.0); Mean Platelet Volume 11.9 fL (9.5-12.2); Monocytes # (A) 1.66 X 10*3/uL (0.20-1.00); Monocytes % (A) 10.9 %; Neutrophils # (A) 10.79 X 10*3/uL (1.80-7.70); Neutrophils % (A) 70.8 %; Platelet Count 253 X 10*3/uL (140-440); RBC 6.07 X 10*6/uL (4.40-5.60); RDW 17.3 % (11.5-14.5); Target Cells 2+; WBC 15.22 X 10*3/uL (4.50-10.00)
[2020-07-31] MEDS ORDERED: VANCOMYCIN TROUGH DUE 1 EACH MISC MISCELLANE ONE (19:00)
[2020-07-31] MEDS: SODIUM CHLORIDE 0.9% 1,000 ML IV SCH (19:01)
--- NOTE | 2020-07-31 21:05 | CONS ---
CONSULTATION DATE OF SERVICE: 07/31/2020 REASON FOR CONSULTATION: Cellulitis and rash. HISTORY OF PRESENT ILLNESS: The patient is a 55-year-old male who was recently presented to this facility for evaluation of pain to the lower extremity and petechial rash. The patient was advised admission to the hospital. However, the patient left against medical advice. Patient now presenting back to [facility] ER last evening for evaluation of worsening leg pain and rash. The patient's symptoms have been going on for about 9 days before presentation to hospital. The patient did have swelling and redness and pain especially to the left leg. Also developing a petechial rash to the lower extremity that subsequently has been involving the upper extremity as well. The patient denies having any itching or rash to the rash area. Denies any mucous membrane lesion. The patient denies pain. The patient describing his pain to the left leg to be more of a sharp intensity about 6-7 out of 10. He presented to the hospital worse with walking. However, seemed to improve with the pain medication and rest. The patient was evaluated by the ER physician. On arrival to the ER, the patient did have a low-grade fever of 100.8 degrees Fahrenheit. The patient did have a white count of 15.2. Repeat is about the same. He did have a left shift. No thrombocytopenia. Sedimentation rate was normal. Creatinine was normal. CRP is 2.9. Procalcitonin was 2. Lewis PCR was negative. The patient did have lower extremity Doppler that was negative for DVT. X-ray did show some soft tissue swelling. No fracture. The patient was started on vancomycin. Has been admitted to the hospital. Infectious Disease was consulted for further management of antibiotic therapy. The patient is currently sexually active with the same partner. Denies any new sexual partner. Denies having any urethral drainage or genital lesions and no joint swelling. No new lesion on the palms and soles. REVIEW OF SYSTEMS: Positive points have been mentioned in HPI. Rest of systems are negative. PAST MEDICAL HISTORY: Hypertension, hyperlipidemia, chronic back pain. PAST SURGICAL HISTORY: No major surgery. SOCIAL HISTORY: Current everyday smoker. Vapes occasional. Does admit to marijuana use. FAMILY HISTORY: No pertinent findings noticed. ALLERGIES: No known drug allergies. MEDICATIONS: The patient is currently on Tylenol, Flexeril, Pepcid, heparin, Ativan, Toprol-XL, vancomycin, Narcan, Percocet, vancomycin, pharmacy to dose. PHYSICAL EXAMINATION: Blood pressure 173/100 with a pulse of 70. Temperature is 97.6. He is 100% on room air. General description: The patient is a middle-aged male lying in bed in no distress. No tachypnea or accessory muscles of respiration use. HEENT: Examination shows no pallor or scleral icterus. Oral mucous membranes moist. No pharyngeal erythema or thrush. NECK: Trachea central. No thyromegaly. LUNGS unlabored breathing. Clear to auscultation anteriorly. No wheeze or crackles. Heart S1, S2. Regular rate and rhythm. No added sounds. ABDOMEN: Soft. No tenderness. No guarding. No rigidity. EXTREMITIES: No edema of the feet. Examination of the lower extremities as the lower extremities did have evidence of a petechial rash. There was no evidence of any vesicles or definitive redness. The patient did have fairly good movement on the ankle joint and did not have any pressure wounds of the foot. No lesion on the soles and arm. No joint swelling. NEUROLOGICAL: Patient is awake, alert, oriented times three. Mood and affect normal. LABS: Hemoglobin is 12.5, white count 15.22 with left shift. BUN of 15, creatinine 0.95. CRP is 2.9. DIAGNOSTIC IMPRESSION AND PLAN: Patient admitted to the hospital with left lower extremity pain in this patient who did have evidence of a petechial rash plus-minus mild cellulitis, likely from a gram- positive skin willem. Other rheumatologic illness needs to be ruled out, especially with the predominant rash. PLAN: 1. We will check CLINTON rheumatoid factor and syphilis serology. 2. Check an HIV serology as well as hepatitis serology. 3. Continue with vancomycin, pharmacy to dose, however, add Rocephin 2 grams daily. 4. We will follow on his clinical condition and investigations to further adjust medication if needed. Thank you for this consult. We will follow this patient along with you. MMODL / IJN: [id number] /
[2020-07-31] MEDS: FAMOTIDINE 20 MG TAB PO SCH (21:11)
[2020-08-01] MEDS: SODIUM CHLORIDE 0.9% 1,000 ML IV SCH ×2 (04:25→18:00)
[2020-08-01] MEDS: VANCOMYCIN 1,500 MG in SODIUM CHLORIDE 0.9% 250 ML IVPB SCH ×2 (04:35→12:34)
[2020-08-01 08:03] LABS: African American GFR (CKD) >90 (>60 ml/min/1.73 sqM); Non-African American GFR(CKD) >90 (>60 ml/min/1.73 sqM)
[2020-08-01] MEDS: HEPARIN SODIUM,PORCINE/PF 5,000 UNIT/0.5 ML SYRINGE SQ SCH ×2 (09:01→20:02)
[2020-08-01] MEDS: FAMOTIDINE 20 MG TAB PO SCH ×2 (09:01→20:02)
[2020-08-01] MEDS: METOPROLOL SUCCINATE (ER) 50 MG TAB.ER.24H PO SCH (10:41)
--- NOTE | 2020-08-01 12:43 | CONS ---
CONSULTATION DATE OF SERVICE: August 01, 2020. REASON FOR CONSULTATION: Rash and purpura. CHIEF COMPLAINT: Rash. HISTORY OF PRESENT ILLNESS: Gilbert is a very pleasant 55 years old gentleman who has developed a rash on his lower extremities about 2 about 2 weeks ago and it is a petechiae rash. He came in initially to the emergency department and then subsequently he left AMA, but the rash has progressed on his lower extremities and upper extremities associated with swelling in his ankles and wrist and elbow. So he came back to the hospital, had ended up being admitted to the hospital for further evaluation and recommendation. He did have a low- grade fever in the emergency department and he also degree and of the leukocytosis with left shift. His platelet count were normal. CRP and serum creatinine was normal and his sahu PCR was negative. He did have a lower extremity Doppler which was negative for DVT and an x-ray shows soft tissue swelling but no fracture. The patient was seen by infectious disease and he was started on vancomycin. We were asked to see the patient to further evaluate the etiology of his petechiae rash. The patient stated that he did not take any new medication and no recent travel or exposure to chemicals. He feels fine otherwise. He denies he did have any fever, chills at home. No melena, hematochezia, hematuria or hemoptysis. No dyspnea. No sores in his mouth. No dysphagia and his weight has remained stable. His main complaint is petechia rash which started in the lower extremities and extended to the thigh and also involved into his upper extremities as well associated with swelling in his ankles and also some swelling in elbows and wrists. PAST MEDICAL HISTORY: Essentially positive only for hypertension, hyperlipidemia, and he has chronic back pain. PAST SOCIAL HISTORY: He is a smoker. He is an occasional drinker. He uses marijuana off and on, but no IV drug use. FAMILY HISTORY: His father had lung cancer and his brother had DVT otherwise and mother had diabetes. ALLERGIES: No known drug allergies. HOME MEDICATION: Include to metoprolol 50 mg daily. Flexeril 10 mg b.i.d. as needed, Zyrtec as needed. REVIEW OF SYSTEMS: As stated above in the history of present illness, otherwise negative. PHYSICAL EXAMINATION: He is alert, oriented x3. He does not appear to be in acute distress. Well developed, well nourished. His vital signs are temperature 97.9. Afebrile. Pulse 68, regular, respiration 18, blood pressure 128/89, pulse ox 99 percent on room air. HEENT: Normocephalic, atraumatic. Oral mucosa intact. No obvious icterus. NECK: Supple. No jugular venous distention. CHEST equal expansion bilaterally. LUNGS: Clear to auscultation and percussion. HEART is regular rate and rhythm. ABDOMEN: Soft. No organomegaly or masses or ascites. Bowel sounds present. EXTREMITIES: He has some swelling in both ankles and also some swelling in his both elbows. SKIN: He has petechia rash extending from his ankle up all the way up to his thigh and buttock and also the petechial rash involving his upper extremities. LABORATORY DATA: WBC are 15.2, hemoglobin 12.5, hematocrit is 31.1, MCV is 67.5, platelets are 257, and differential showed increase in the eosinophils and neutrophils. Chemistry panel: WBC reveals sodium 137, potassium 4.7, chloride 104, CO2 is 25, BUN 15, creatinine 0.7, calcium is 9.8, AST is 25, ALT 17. C-reactive protein 2.9. IMPRESSION: 1. Petechia rash on his upper and lower extremities. I doubt this is related to platelet dysfunction. This is more consistent with vasculitis rash, this is more consistent with vasculitis. One of the differential diagnosis would include Henoch Schonlein purpura. Certainly other cause of vasculitis remain in the differential diagnosis. 2. Microcytosis without any significant anemia. This has been chronic and likely reflecting a thalassemia trait. RECOMMENDATION: 1. From Hematology standpoint, I do not believe any additional workup needed. 2. I would recommend to obtain urinalysis to make sure there is no proteinuria or hematuria which goes along was Henoch-Schonlein purpura. 3. Also I would recommend additional workup for possible underlying vasculitis. 4. If the above workup not revealing, then a skin biopsy should be obtained. Thank you very much for the consultation. MMODL / IJN: [id number] /
[2020-08-01 12:51] LABS: Hepatitis A Antibody IgM Non-Reactive (Non-Reactive); Hepatitis B Core IgM Non-Reactive (Non-Reactive); Hepatitis B Surface Antigen Non-Reactive (Non-Reactive); Hepatitis C IgG Antibody Non-Reactive (Non-Reactive)
[2020-08-01 13:01] LABS: Rheumatoid Factor, Qnt 6 IU/mL (0-15)
--- NOTE | 2020-08-01 14:44 | P.PN ---
Subjective This is a pleasant 55 years old male with past medical history of hypertension, hyperlipidemia, chronic back pain, nicotine dependence. Presents with bilateral with pain and swelling for about one week. Dr. Richard his PCP prescribed him ALLERGY medication, Medrol pack. With no improvement and his pain and swelling getting worse he has petechial rash in the leg and feet, more confluent on the feet, however his left leg is swollen and warm. He had mild leukocytosis of 12.1 K. Patient was admitted from emergency room for cellulitis with infectious disease consult, he was started on Zosyn. However patient signed himself out same day. She comes back today complaining from worsening pain and swelling in his left leg and more especially left foot. Also was complaining from worsening rash which was in his lower extremity and mainly in the feet 3 days ago now is extending into the thigh and groin, lower abdomen and upper extremity especially in the forearms and antecubital fossa. No mouth ulcers or rash. No blurred vision. No other complaints. No chest pain or dyspnea or coughing. No abdominal pain or nausea vomiting. No headache or weakness or numbness or blurred vision. No slurred speech. No fever Patient is complaining of from constipation Patient is stable hemodynamically, blood pressure on the high side 165/100. Labs showing worsening leukocytosis of 12 up to 15.28. Hemoglobin normal. Platelets are normal at 267K.. INR is 0.9. BMP and liver enzymes were unremarkable. Coronal virus not detected. Protocol Mobile and was normal last time at 0.05. Serology disease like C-ANCA AND P-ANCA are negative, CLINTON negative, rheumatoid factor is negative. showing , hemoglobin normal at 14.0, platelet normal at 223K. Rest of BMP, liver enzymes are unremarkable. C-reactive protein is slightly up at 1.8. In the emergency room patient was started on IV vancomycin and 1 time dose of Zosyn and 1 time dose of Rocephin. 08/01/2020 This is a pleasant 55 years old male who presented with left leg swelling, warmth and tenderness, his swelling was more in the left foot, and more in the elbows. Also patient has purpuric rash more in the lower extremity and to a lesser extent in the upper extremities and but not on the trunk or the mouth, no mouth ulcers as well. His rash was worse than 3-4 days ago when he left [facility] the emergency room and when I saw him at that time. Patient was suspected to have left leg cellulitis. Patient was initiated with IV vancomycin and ceftriaxone and today he has significant improvement in his left leg swelling and tenderness and warmth although there is still inflamed compared to the right side. Also his purpuric rash is fading away with less redness and regressing vitals are stable,no labs from today, we'll repeat labs tomorrow. patient is currently on ceftriaxone and IV vancomycin and normal saline at 75 mL/h I discussed the case with Dr. Weir and ID team,m the rash is atypical for platelet disease or problem. also it is unlikely secondary to infection.because of these were consulted Dr. Wyman a custom miller to rule out vasculitis .Patient informed with the Review of systems CONSTITUTIONAL: No fever, no malaise, no fatigue. HEENT: No recent visual problems or hearing problems. Denied any sore throat. CARDIOVASCULAR: No orthopnea, PND, no palpitations, no syncope. PULMONARY: No shortness of breath, no cough, no hemoptysis. GASTROINTESTINAL: No diarrhea, no nausea, no vomiting, no abdominal pain. Normoactive bowel sounds. NEUROLOGICAL: No headaches, no weakness, no numbness. Active Medications Generic Name Dose Route Start Last Admin Trade Name Freq PRN Reason Stop Dose Admin Acetaminophen 650 mg 07/30/20 21:00 Acetaminophen Tab 325 Mg Tab PO Q6HR PRN Mild Pain or Fever > 100.5 Cyclobenzaprine HCl 10 mg 07/30/20 23:27 07/31/20 18:21 Cyclobenzaprine 10 Mg Tab PO 10 mg BID PRN Administration Muscle Spasm Famotidine 20 mg 07/31/20 21:00 08/01/20 09:01 Famotidine 20 Mg Tab PO 20 mg BID NIC Administration Heparin Sodium (Porcine) 5,000 unit 07/31/20 09:00 08/01/20 09:01 Heparin Sodium,Porcine/Pf 5,000 Unit/0.5 Ml Syringe SQ 5,000 unit Q12HR NIC Administration Vancomycin HCl 1,500 mg/ 250 mls @ 125 mls/hr 07/31/20 04:00 08/01/20 12:34 Sodium Chloride IVPB 125 mls/hr Q8H NIC Administration Sodium Chloride 1,000 mls @ 75 mls/hr 07/30/20 21:00 08/01/20 04:25 Saline 0.9% IV Not Given .[id number] NIC Ceftriaxone Sodium 2 gm/ 50 mls @ 100 mls/hr 07/31/20 17:30 08/01/20 09:02 Sodium Chloride IVPB 100 mls/hr Q24HR NIC Administration Lorazepam 0.5 mg 07/30/20 21:00 Lorazepam 2 Mg/Ml Inj IV Q6HR PRN Anxiety Metoprolol Succinate 50 mg 07/31/20 09:00 08/01/20 10:41 Metoprolol Succinate (Er) 50 Mg Tab.Er.24h PO 50 mg DAILY NIC Administration Morphine Sulfate 4 mg 07/30/20 21:00 07/31/20 13:36 Morphine Sulfate 4 Mg/Ml Syringe IV 4 mg Q4HR PRN Administration Severe Pain Naloxone HCl 0.2 mg 07/30/20 21:00 Naloxone 0.4 Mg/Ml 1 Ml Vial IV Q2M PRN Opioid Reversal Oxycodone/Acetaminophen 1 each 07/30/20 21:00 Oxycodone-Apap 5-325mg 1 Each Tab PO Q4HR PRN Severe Pain Objective - Vital Signs Vital signs: Vital Signs Temp 97.9 F 08/01/20 07:00 Pulse 68 08/01/20 07:00 Resp 18 08/01/20 07:00 BP 128/85 08/01/20 07:00 Pulse Ox 99 08/01/20 07:00 Intake & Output 07/31/20 08/01/20 08/01/20 18:59 06:59 18:59 Weight 77.564 kg Other: Voiding Method Toilet Toilet # Voids 1 3 1 - Exam GENERAL: The patient is alert and oriented x3, not in any acute distress. Well developed, well nourished. HEENT: Pupils are round and equally reacting to light. EOMI. No scleral icterus. No conjunctival pallor. Normocephalic, atraumatic. No pharyngeal erythema. No thyromegaly. CARDIOVASCULAR: S1 and S2 present. No murmurs, rubs, or gallops. PULMONARY: Chest is clear to auscultation, no wheezing or crackles. ABDOMEN: Soft, nontender, nondistended, normoactive bowel sounds. No palpable organomegaly. MUSCULOSKELETAL: No joint swelling or deformity. EXTREMITIES: No cyanosis, clubbing, or pedal edema. Left foot is swollen and to a lesser degree the left leg, both are warm NEUROLOGICAL: Gross neurological examination did not reveal any focal deficits. -SKIN: petechial-like rashes, mainly in the extremities and the lower extremity more than the upper extremity, improving. no itching. Left foot and bilateral elbow swelling is significantly improved - Labs CBC & Chem 7: 07/31/20 06:11 08/01/20 07:19 Labs: Microbiology - Last 24 Hours (Table) 07/30/20 19:32 Blood Culture - Preliminary Blood No Growth after 24 hours 07/30/20 19:32 Blood Culture - Preliminary Blood No Growth after 24 hours Assessment and Plan Assessment: Left leg swelling, warmth and tenderness suspicious for cellulitis Progressive petechial rash.improving. Rule out vasculitis Hypertension Hyperlipidemia Chronic back pain Nicotine dependence, patient counselled. He declined nicotine patch Plan: This is a pleasant 55 years old male who presents with left leg swelling and warm suspicious for cellulitis associated with progressive petechial-like rash. Continue with antibiotics, but infectious disease team. We will consult hematology Labs and medication were reviewed.. Continue same treatment. Continue with symptomatic treatment. Resume home medication. Monitor lytes and vitals. DVT and GI prophylaxis. Further recommendationsas per clinical course of the patient DVT prophylaxis: Subcutaneous heparin GI Prophylaxis: Pepcid PT/OT: Pending Prognosis is guarded
--- NOTE | 2020-08-01 20:21 | PN ---
PROGRESS NOTE DATE OF SERVICE: 08/01/2020 REASON FOR FOLLOWUP: Left ankle cellulitis and rash, possible vasculitis. INTERVAL HISTORY: The patient is afebrile. The patient is feeling better today. The patient left ankle and leg swelling as well as the rash is decreased in intensity. No new rash has been noticed. No chest pain, shortness of breath or cough. No abdominal pain or diarrhea. PHYSICAL EXAMINATION: Blood pressure 112/76, pulse of 82, temperature 98. He is 98% on room air. General description: The patient is a middle-aged male lying in in no distress. Respiratory system: Unlabored breathing, clear to auscultation anteriorly. Heart S1, S2. Regular rate and rhythm. Abdomen soft, no tenderness. Left ankle swelling has slightly decreased and the rash is decreased in intensity. LABS: ( ) has been negative so far. Rheumatoid factor is negative. DIAGNOSTIC IMPRESSION AND PLAN: 1. Patient with left ankle leg cellulitis, possibly gram-positive skin willem. Continue with Rocephin. Discontinue the vancomycin. 2. Petechial rash, possibly vasculitis. May benefit from rheumatology evaluation and continue supportive care. MMODL / IJN: [id number] /
[2020-08-02] MEDS: SODIUM CHLORIDE 0.9% 1,000 ML IV SCH ×2 (03:04→12:06)
[2020-08-02 08:22] LABS: African American GFR (CKD) >90 (>60 ml/min/1.73 sqM); Non-African American GFR(CKD) >90 (>60 ml/min/1.73 sqM)
[2020-08-02] MEDS: HEPARIN SODIUM,PORCINE/PF 5,000 UNIT/0.5 ML SYRINGE SQ SCH (08:36)
[2020-08-02] MEDS: METOPROLOL SUCCINATE (ER) 50 MG TAB.ER.24H PO SCH (08:36)
[2020-08-02] MEDS: FAMOTIDINE 20 MG TAB PO SCH (08:36)
[2020-08-02 08:38] VITALS: BP 115/86; PULSE 78; RESP 17; TEMP 98.2
[2020-08-02 09:16] LABS: Appearance,Urine Clear (Clear); Bilirubin,Urine Negative (Negative); Blood,Urine Negative (Negative); Color,Urine Yellow; Glucose,Urine (UA) Negative (Negative); Ketones,Urine Negative (Negative); Leukocyte Esterase,Urine Negative (Negative); Nitrite,Urine Negative (Negative); Protein,Urine Negative (Negative); Specific Gravity,Urine 1.024 (1.001-1.035); Urobilinogen,Urine <2.0 mg/dL (<2.0)
--- NOTE | 2020-08-02 13:40 | PN ---
PROGRESS NOTE DATE OF SERVICE: 08/02/2020 REASON FOR FOLLOWUP: Left ankle cellulitis and petechial rash. INTERVAL HISTORY: The patient is afebrile. The patient is breathing comfortably. Denies any chest pain. No shortness of breath or cough. No abdominal pain. Overall pain and discomfort to left leg has decreased. No new rash has been noticed. PHYSICAL EXAMINATION: Blood pressure 115/86, pulse of 70, temperature 98.2. He is 99% on room air. General description is a middle-aged male lying in bed in no distress. Respiratory system: Unlabored breathing, clear to auscultation anteriorly. Heart S1, S2. Regular rate and rhythm. ABDOMEN: Soft. No tenderness. Left ankle swelling and redness has decreased. LABS: No new labs have been obtained today. Culture has been negative so far. DIAGNOSTIC IMPRESSION/PLAN: 1. Patient with left ankle cellulitis, overall improvement on Rocephin. Finish a short course of oral Ceftin. 2. Patient with a petechial rash, waiting for the rheumatology evaluation or possible dermatology workup to rule out vasculitis. MMODL / IJN: [id number] /
[2020-08-02 18:05] LABS: HIV 2 AB Non-Reactive (Non-Reactive); HIV AB P24 Non-Reactive (Non-Reactive); HIV P24 AG Non-Reactive (Non-Reactive)
--- NOTE | 2020-08-02 22:49 | DS ---
DISCHARGE SUMMARY DATE OF SERVICE: 08/02/2020 FINAL DIAGNOSES: 1. Bilateral purpuric lesions possibly purpura on the legs. 2. Rule out cellulitis. 3. Progressive petechial rash. 4. Hypertension. 5. Hyperlipidemia. 6. Chronic back pain, degenerative joint disease. 7. History of nicotine dependence. The patient being discharged in stable condition with guarded prognosis. Recommend close followup with Dr. Salgado in the outpatient setting. HISTORY OF PRESENT ILLNESS: This 55-year-old gentleman with a past medical history of multiple medical problems admitted with bilateral skin lesions suggestive of purpura. Patient treated symptomatically. Patient also given empiric antibiotics. On exam, vitals signs stable. Cardiovascular S1, S2. Abdomen soft. Skin: Lytic lesions present. I have discussed with Dr. Salgado, who will see the patient in the outpatient setting. Otherwise, labs are reviewed which include WBC 15.2, hemoglobin 12.5. Multiple consultants saw the patient during the hospitalization. Mostly lymphocytes and monocytes. CRP is 2.9. ESR is only 5. DISCHARGE ADVICE AND MEDICATIONS: 1. Diet is cardiac diet. 2. Activity limited until followup. 3. Follow up with Dr. Richard in 2-3 days. 4. Follow up with Dr. Salgado as recommended. DISCHARGE MEDICATIONS: 1. Flexeril 10 mg p.o. b.i.d. 2. Medrol Dosepak as before. 3. Toprol-XL 50 mg p.o. daily. 4. Zyrtec 10 mg p.o. daily. Once again, the patient being discharged in stable condition with guarded prognosis. MMODL / IJN: [id number] / CLARA
== END 2020-08-02 12:45 | disposition home or self-care (01) | DRG 603 ==
LOC: EC 17:22 → 6NMEDSUR 20:59 → OBSVTOIN 08-02 10:53
PROVIDERS: ADMIT Internal Medicine; ATTEND Internal Medicine
DX: L03.116 Cellulitis of left lower limb (principal); K59.00 Constipation, unspecified; L03.115 Cellulitis of right lower limb; I10 Essential (primary) hypertension; R21 Rash and other nonspecific skin eruption; E78.5 Hyperlipidemia, unspecified; F17.200 Nicotine dependence, unspecified, uncomplicated; F12.90 Cannabis use, unspecified, uncomplicated; G89.29 Other chronic pain; Z79.899 Other long term (current) drug therapy; D69.2 Other nonthrombocytopenic purpura; D56.3 Thalassemia minor; M54.9 Dorsalgia, unspecified
CPT/HCPCS: 36415; 80048; 80053; 80074; 80202; 81003; 82565; 83605; 84145; 85025; 85610; 85652; 85730; 86038; 86140; 86431; 86780; 87040; 87390; 87635; 93970; 96365; 99285

== ENCOUNTER 2020-10-25 22:11 | Emergency (ER) | payer OTHER ==
[2020-10-25 22:19] VITALS: BP 162/104; PULSE 66; RESP 18; TEMP 97.5
[2020-10-25] MEDS ORDERED: OXYMETAZOLINE 0.05% NASL SPRAY 1 SPRAY BOTTLE NASAL STA (23:13)
--- NOTE | 2020-10-25 23:30 | ED ---
ENT HPI - General Chief complaint: ENT Stated complaint: nosebleed Time Seen by Provider: 10/25/20 23:13 Source: patient Mode of arrival: ambulatory Limitations: no limitations - History of Present Illness Initial comments: 55-year-old male presents to the emergency department with a chief complaint of a nosebleed. Patient reports it occurred this morning after she had a coughing episode. He states that he continues to have intermittent bleeding throughout the day and it appears to be bleeding from both nostrils. He also reports spitting up some blood as well. He denies any trauma to the nose. Denies any blood thinner use. Denies any lightheadedness, dizziness, headaches, nausea, vomiting at this time. Denies any hemoptysis or hematemesis. - Related Data Home Medications Medication Instructions Recorded Confirmed Cetirizine HCl [Zyrtec] 10 mg PO DAILY PRN 07/27/20 07/30/20 Metoprolol Succinate [Toprol XL] 50 mg PO DAILY 07/27/20 07/30/20 methylPREDNISolone Dose Pack See Taper PO DAILY 07/27/20 07/30/20 [Medrol Dose Pack] Cyclobenzaprine [Flexeril] 10 mg PO BID PRN 07/30/20 07/30/20 Allergies Allergy/AdvReac Type Severity Reaction Status Date / Time No Known Allergies Allergy Verified 10/25/20 22:17 Review of Systems ROS Statement: Those systems with pertinent positive or pertinent negative responses have been documented in the HPI. ROS Other: All systems not noted in ROS Statement are negative. Past Medical History Past Medical History: Hyperlipidemia, Hypertension Additional Past Medical History / Comment(s): back pain History of Any Multi-Drug Resistant Organisms: None Reported Past Surgical History: No Surgical Hx Reported Past Psychological History: No Psychological Hx Reported Smoking Status: Current every day smoker Past Alcohol Use History: Occasional Past Drug Use History: Marijuana General Exam Limitations: no limitations General appearance: alert, in no apparent distress Head exam: Present: atraumatic, normocephalic, normal inspection Eye exam: Present: normal appearance, PERRL, EOMI Pupils: Present: normal accommodation ENT exam: Present: normal exam, normal oropharynx (Bleeding noted in bilateral nostrils. Residual blood noted in the posterior pharynx), mucous membranes moist Neck exam: Present: normal inspection, full ROM. Absent: tenderness Respiratory exam: Present: normal lung sounds bilaterally. Absent: respiratory distress, wheezes, rales, rhonchi, stridor Cardiovascular Exam: Present: regular rate, normal rhythm, normal heart sounds. Absent: systolic murmur Extremities exam: Present: normal inspection, full ROM Back exam: Present: normal inspection, full ROM Neurological exam: Present: alert, oriented X3 Psychiatric exam: Present: normal affect, normal mood Skin exam: Present: warm, dry, intact, normal color Course Vital Signs 10/25/20 22:17 Temperature 97.5 F L Pulse Rate 66 Respiratory 18 Rate Blood Pressure 162/104 O2 Sat by Pulse 97 Oximetry Medical Decision Making - Medical Decision Making 55-year-old male presents to the emergency department with a chief complaint of a nosebleed. On physical examination, he does have minimal bleeding from bilateral nostrils. There is also some residual blood noted in the posterior pharynx. I do suspect this to be posterior epistaxis. I applied Afrin in bilateral nostrils along with a nose clamp. On reevaluation, the bleeding has completely resolved. Patient reports she is feeling better. He is not spitting up any blood either. I advised him to follow up with an ENT specialist. I advised him to avoid standing next to highly maxillary areas. Advised him to apply [place] spray in the morning or even apply Vaseline to bilateral nostrils. Return parameters were thoroughly discussed the patient was understanding and agreeable. Disposition Clinical Impression: Epistaxis not due to trauma Disposition: HOME SELF-CARE Condition: Stable Instructions (If sedation given, give patient instructions): Nosebleed (ED) Additional Instructions: Please return to the Emergency Department if symptoms worsen or any other concerns. Is patient prescribed a controlled substance at d/c from ED?: No Referrals: Robert Richard MD [Primary Care Provider] - 1-2 days Time of Disposition: 23:44
== END 2020-10-25 23:56 | disposition home or self-care (01) ==
LOC: EC 22:11
DX: R04.0 Epistaxis (principal); I10 Essential (primary) hypertension; E78.5 Hyperlipidemia, unspecified; F17.200 Nicotine dependence, unspecified, uncomplicated; F12.90 Cannabis use, unspecified, uncomplicated; Z79.899 Other long term (current) drug therapy
CPT/HCPCS: 30901; 99283

== ENCOUNTER 2021-11-22 07:38 | Emergency (ER) | payer OTHER ==
[2021-11-22 07:49] VITALS: BP 161/104; PULSE 87; RESP 18; TEMP 98.1
--- NOTE | 2021-11-22 08:04 | ED ---
ENT HPI - General Chief complaint: ENT Stated complaint: Lip swelling Time Seen by Provider: 11/22/21 07:39 Source: patient, RN notes reviewed Mode of arrival: ambulatory Limitations: no limitations - History of Present Illness Initial comments: 56-year-old male presents emergency from chief complaint of upper lip swelling. Patient is started yesterday worse today. Patient states is a small red bump. Patient states that he had no trauma no fevers chills no difficulty swallowing no other complaints. Patient has no dentition issues. - Related Data Home Medications Medication Instructions Recorded Confirmed Cetirizine HCl [Zyrtec] 10 mg PO DAILY PRN 07/27/20 07/30/20 Metoprolol Succinate [Toprol XL] 50 mg PO DAILY 07/27/20 07/30/20 methylPREDNISolone Dose Pack See Taper PO DAILY 07/27/20 07/30/20 [Medrol Dose Pack] Cyclobenzaprine [Flexeril] 10 mg PO BID PRN 07/30/20 07/30/20 Previous Rx's Medication Instructions Recorded Ibuprofen [Motrin] 600 mg PO Q8HR PRN #30 tab 04/18/21 Cephalexin [Keflex] 500 mg PO Q6HR #40 cap 11/22/21 Sulfamethox-Tmp 800-160Mg [Bactrim 1 each PO Q12HR #20 tab 11/22/21 Ds] Allergies Allergy/AdvReac Type Severity Reaction Status Date / Time No Known Allergies Allergy Verified 11/22/21 07:50 Review of Systems ROS Statement: Those systems with pertinent positive or pertinent negative responses have been documented in the HPI. ROS Other: All systems not noted in ROS Statement are negative. Past Medical History Past Medical History: Hyperlipidemia, Hypertension Additional Past Medical History / Comment(s): back pain History of Any Multi-Drug Resistant Organisms: None Reported Past Surgical History: No Surgical Hx Reported Past Psychological History: No Psychological Hx Reported Smoking Status: Current every day smoker Past Alcohol Use History: Heavy Past Drug Use History: Marijuana General Exam Limitations: no limitations General appearance: alert, in no apparent distress Head exam: Present: atraumatic, normocephalic, normal inspection Eye exam: Present: normal appearance, PERRL, EOMI. Absent: scleral icterus, conjunctival injection, periorbital swelling ENT exam: Present: mucous membranes moist. Absent: normal exam, normal oropharynx (Upper lip swelling, mild erythema noted, tenderness with palpation, very firm) Neck exam: Present: normal inspection, full ROM. Absent: tenderness, meningismus, lymphadenopathy Respiratory exam: Present: normal lung sounds bilaterally. Absent: respiratory distress, wheezes, rales, rhonchi, stridor Course Vital Signs 11/22/21 07:44 Temperature 98.1 F Pulse Rate 87 Respiratory 18 Rate Blood Pressure 161/104 O2 Sat by Pulse 100 Oximetry Medical Decision Making - Medical Decision Making 56-year-old presented for upper lip signed there appeared to be signs of infection concern for early abscess patient was started on antibiotics warm compresses and close follow-up. Return parameters were discussed. Disposition Clinical Impression: Facial abscess Disposition: HOME SELF-CARE Condition: Stable Instructions (If sedation given, give patient instructions): Abscess (ED) Additional Instructions: Please return to the Emergency Department if symptoms worsen or any other concerns. Prescriptions: Sulfamethox-Tmp 800-160Mg [Bactrim Ds] 1 each PO Q12HR #20 tab Cephalexin [Keflex] 500 mg PO Q6HR #40 cap Is patient prescribed a controlled substance at d/c from ED?: No Referrals: None,Stated [Primary Care Provider] - 1-2 days Time of Disposition: 08:03
== END 2021-11-22 08:15 | disposition home or self-care (01) ==
LOC: EC 07:38
DX: L02.91 Cutaneous abscess, unspecified (principal); E78.5 Hyperlipidemia, unspecified; I10 Essential (primary) hypertension; F17.200 Nicotine dependence, unspecified, uncomplicated; F12.90 Cannabis use, unspecified, uncomplicated; Z79.899 Other long term (current) drug therapy
CPT/HCPCS: 99283

== ENCOUNTER 2024-03-18 10:16 | Emergency (ER) | payer OTHER ==
[2024-03-18 10:26] VITALS: BP 159/114; PULSE 70; RESP 18; TEMP 98.4
--- NOTE | 2024-03-18 10:42 | ED ---
Recheck HPI - General Chief Complaint: Recheck/Abnormal Lab/Rx Stated Complaint: Medication refill Source: patient Mode of arrival: ambulatory Limitations: no limitations - History of Present Illness Initial Comments: This is a 59-year-old male with history of hypertension presenting for blood pressure medication refill request. Patient denies having any current symptoms but requires refill for his metoprolol daily 50 mg until he can find a PCP for ongoing prescription refills. Denies headache, dizziness, vision changes, chest pain, dyspnea. MD Complaint: medication refill request Onset/Timin -: days(s) Symptoms Since Prior Visit: no new symptoms Associated Symptoms: none - Related Data Home Medications Medication Instructions Recorded Confirmed Cetirizine HCl [Zyrtec] 10 mg PO DAILY PRN 07/27/20 07/30/20 Metoprolol Succinate [Toprol XL] 50 mg PO DAILY 07/27/20 07/30/20 methylPREDNISolone Dose Pack See Taper PO DAILY 07/27/20 07/30/20 [Medrol Dose Pack] Cyclobenzaprine [Flexeril] 10 mg PO BID PRN 07/30/20 07/30/20 Previous Rx's Medication Instructions Recorded Ibuprofen [Motrin] 600 mg PO Q8HR PRN #30 tab 04/18/21 Cephalexin [Keflex] 500 mg PO Q6HR #40 cap 11/22/21 Sulfamethox-Tmp 800-160Mg [Bactrim 1 each PO Q12HR #20 tab 11/22/21 Ds] Metoprolol Succinate (ER) [Toprol 50 mg PO DAILY 28 Days #28 tab 04/06/22 XL] Metoprolol Succinate [Toprol XL] 50 mg PO DAILY #30 tab 07/02/22 Metoprolol Succinate (ER) [Toprol 50 mg PO DAILY #30 tab 03/18/24 XL] Allergies Allergy/AdvReac Type Severity Reaction Status Date / Time No Known Allergies Allergy Verified 03/18/24 10:25 Review of Systems ROS Statement: Those systems with pertinent positive or pertinent negative responses have been documented in the HPI. ROS Other: All systems not noted in ROS Statement are negative. Past Medical History Past Medical History: Hyperlipidemia, Hypertension Additional Past Medical History / Comment(s): back pain History of Any Multi-Drug Resistant Organisms: None Reported Past Surgical History: No Surgical Hx Reported Past Psychological History: No Psychological Hx Reported Smoking Status: Current every day smoker Past Alcohol Use History: Occasional Past Drug Use History: Marijuana General Exam Limitations: no limitations General appearance: alert, in no apparent distress Head exam: Present: atraumatic, normocephalic, normal inspection Eye exam: Present: normal appearance, PERRL, EOMI. Absent: scleral icterus, conjunctival injection, periorbital swelling ENT exam: Present: normal exam, mucous membranes moist Neck exam: Present: normal inspection. Absent: tenderness, meningismus, lymphadenopathy Respiratory exam: Present: normal lung sounds bilaterally. Absent: respiratory distress, wheezes, rales, rhonchi, stridor Cardiovascular Exam: Present: regular rate, normal rhythm, normal heart sounds. Absent: systolic murmur, diastolic murmur, rubs, gallop, clicks GI/Abdominal exam: Present: soft, normal bowel sounds. Absent: distended, tenderness, guarding, rebound, rigid Extremities exam: Present: normal inspection, full ROM, normal capillary refill. Absent: tenderness, pedal edema, joint swelling, calf tenderness Back exam: Present: normal inspection Neurological exam: Present: alert, oriented X3, CN II-XII intact Psychiatric exam: Present: normal affect, normal mood Skin exam: Present: warm, dry, intact, normal color. Absent: rash Course Vital Signs 03/18/24 10:21 Temperature 98.4 F Pulse Rate 70 Respiratory 18 Rate Blood Pressure 159/114 O2 Sat by Pulse 97 Oximetry Medical Decision Making - Medical Decision Making Was pt. sent in by a medical professional or institution ([facility], [facility], urgent care, hospital, or [facility]...) When possible be specific @ -[No] Did you speak to anyone other than the patient for history (EMS, parent, family, police, friend...)? What history was obtained from this source @ -[No] Did you review nursing and triage notes (agree or disagree)? Why? @ -[I reviewed and agree with nursing and triage notes] Were old charts reviewed (outside hosp., previous admission, EMS record, old EKG, old radiological studies, urgent care reports/EKG's, [facility] records)? Report findings @ -[No old charts were reviewed] Differential Diagnosis (chest pain, altered mental status, abdominal pain women, abdominal pain men, vaginal bleeding, weakness, fever, dyspnea, syncope, he adache, dizziness, GI bleed, back pain, seizure, CVA, palpatations, mental health, musculoskeletal)? @ -Hypertension, hypertensive urgency, hypertensive emergency, aortic dissection, cerebral aneurysm, this is not an exhaustive list EKG interpreted by me (3pts min.). @ -Not done X-rays interpreted by me (1pt min.). @ -[None done] CT interpreted by me (1pt min.). @ -[None done] U/S interpreted by me (1pt. min.). @ -[None done] What testing was considered but not performed or refused? (CT, X-rays, U/S, labs)? Why? @ -[None] What meds were considered but not given or refused? Why? @ -[None] Did you discuss the management of the patient with other professionals (professionals i.e. , PA, HEEL COMPRESSOR, lab, RT, psych nurse, licensed master social worker, inside solar sales consultant, teacher, licensing officer, case planner)? Give summary @ -[No] Was smoking cessation discussed for >3mins.? @ -[No] Was critical care preformed (if so, how long)? @ -[No] Were there social determinants of health that impacted care today? How? (Homelessness, low income, unemployed, alcoholism, drug addiction, transportation, low edu. Level, literacy, decrease access to med. care, fdc, rehab)? @ -[No] Was there de-escalation of care discussed even if they declined (Discuss DNR or withdrawal of care, Hospice)? DNR status @ -[No] What co-morbidities impacted this encounter? (DM, HTN, Smoking, COPD, CAD, Cancer, CVA, ARF, Chemo, Hep., AIDS, mental health diagnosis, sleep apnea, morbid obesity)? @ -[None] Was patient admitted / discharged? Hospital course, mention meds given and route, prescriptions, significant lab abnormalities, going to OR and other pertinent info. @ -[hospital course] Undiagnosed new problem with uncertain prognosis? @ -[No] Drug Therapy requiring intensive monitoring for toxicity (Heparin, Nitro, Insulin, Cardizem)? @ -[No] Were any procedures done? @ -[No] Diagnosis/symptom? @ -Hypertensive urgency, medication refill Acute, or Chronic, or Acute on Chronic? @ -Acute Uncomplicated (without systemic symptoms) or Complicated (systemic symptoms)? @ -Uncomplicated Side effects of treatment? @ -[No] Exacerbation, Progression, or Severe Exacerbation? @ -[No] Poses a threat to life or bodily function? How? (Chest pain, [place], [place], pneumonia, PE, COPD, DKA, ARF, appy, cholecystitis, CVA, Diverticulitis, Homicidal, Suicidal, threat to staff... and all critical care pts) @ -[No] Disposition Clinical Impression: Hypertension Disposition: HOME SELF-CARE Condition: Good Prescriptions: Metoprolol Succinate (ER) [Toprol XL] 50 mg PO DAILY #30 tab Is patient prescribed a controlled substance at d/c from ED?: No Referrals: None,Stated [Primary Care Provider] - 1-2 days Time of Disposition: 10:42
== END 2024-03-18 10:50 | disposition home or self-care (01) ==
LOC: EC 10:16
DX: I10 Essential (primary) hypertension (principal); F17.200 Nicotine dependence, unspecified, uncomplicated; Z79.899 Other long term (current) drug therapy
CPT/HCPCS: 99281

== ENCOUNTER 2024-09-01 11:00 | Emergency (ER) | payer OTHER ==
[2024-09-01 11:08] VITALS: PULSE 64; TEMP 97.7
--- NOTE | 2024-09-01 11:54 | XR ---
EXAMINATION TYPE: XR chest 2V DATE OF EXAM: 09/01/2024 11:36 AM COMPARISON: Chest radiographs from 12/06/2016 TECHNIQUE: XR chest 2V Frontal and lateral views of the chest. CLINICAL INDICATION:Male, 59 years old with history of difficulty breathing; FINDINGS: Lungs/Pleura: There is no evidence of pleural effusion, focal consolidation, or pneumothorax. Pulmonary vascularity: Unremarkable. Heart/mediastinum: Cardiomediastinal silhouette is unremarkable. Musculoskeletal: No acute osseous pathology. IMPRESSION: No acute cardiopulmonary disease/process. [facility], , 09/01/2024 11:51 AM
[2024-09-01 11:58] LABS: Basophils # (A) 0.08 10*3/uL (0.00-0.10); Basophils % (A) 0.9 %; Eosinophils # (A) 0.27 10*3/uL (0.04-0.35); Eosinophils % (A) 2.9 %; HCT 42.6 % (39.6-50.0); HGB 13.9 g/dL (13.0-17.0); Immature Platelet Fraction 8.3 % (1.1-6.1); Lymphocytes # (A) 2.56 10*3/uL (0.90-5.00); Lymphocytes % (A) 27.6 %; MCH 21.4 pg (27.0-32.0); MCHC 32.6 g/dL (32.0-37.0); MCV 65.5 fL (80.0-97.0); Monocytes # (A) 1.06 10*3/uL (0.20-1.00); Monocytes % (A) 11.4 %; Neutrophils # (A) 5.26 10*3/uL (1.80-7.70); Neutrophils % (A) 56.6 %; Platelet Count 260 10*3/uL (140-440); RBC 6.50 10*6/uL (4.40-5.60); RDW 17.4 % (11.5-14.5); WBC 9.29 10*3/uL (4.50-10.00)
[2024-09-01 12:00] LABS: INR 0.9 (<1.2); Partial Thromboplastin Time 23.4 sec (22.0-30.0); Prothrombin Time 10.3 sec (10.0-12.5)
[2024-09-01 12:16] LABS: ALT 17 U/L (4-49); AST 26 U/L (17-59); African American GFR (CKD) >90 (>60 ml/min/1.73 sqM); Albumin 4.4 g/dL (3.5-5.0); Alkaline Phosphatase 78 U/L (38-126); Anion Gap 12 mmol/L; Blood Urea Nitrogen 17 mg/dL (9-20); Calcium 10.0 mg/dL (8.4-10.2); Carbon Dioxide 23 mmol/L (22-30); Chloride 103 mmol/L (98-107); Glucose 92 mg/dL (74-99); Non-African American GFR(CKD) >90 (>60 ml/min/1.73 sqM); Potassium 4.6 mmol/L (3.5-5.1); Sodium 138 mmol/L (137-145); Total Protein 7.6 g/dL (6.3-8.2)
--- NOTE | 2024-09-01 12:45 | ED ---
General Adult HPI - General Chief complaint: Shortness of Breath Stated complaint: Shortness of breath Time Seen by Provider: 09/01/24 12:19 Source: patient, RN notes reviewed Mode of arrival: ambulatory Limitations: no limitations - History of Present Illness Initial comments: 59-year-old male presents to the emergency department for evaluation of left- sided rib pain. He notes that this has been going on for around 6 days. He states that it is worse when he takes a deep breath. He denies any alleviating factors. He endorses a dry cough. He denies any known fever, chills. - Related Data Home Medications Medication Instructions Recorded Confirmed Cetirizine HCl [Zyrtec] 10 mg PO DAILY PRN 07/27/20 07/30/20 Metoprolol Succinate [Toprol XL] 50 mg PO DAILY 07/27/20 07/30/20 methylPREDNISolone Dose Pack See Taper PO DAILY 07/27/20 07/30/20 [Medrol Dose Pack] Cyclobenzaprine [Flexeril] 10 mg PO BID PRN 07/30/20 07/30/20 Previous Rx's Medication Instructions Recorded Ibuprofen [Motrin] 600 mg PO Q8HR PRN #30 tab 04/18/21 Cephalexin [Keflex] 500 mg PO Q6HR #40 cap 11/22/21 Sulfamethox-Tmp 800-160Mg [Bactrim 1 each PO Q12HR #20 tab 11/22/21 Ds] Metoprolol Succinate (ER) [Toprol 50 mg PO DAILY 28 Days #28 tab 04/06/22 XL] Metoprolol Succinate [Toprol XL] 50 mg PO DAILY #30 tab 07/02/22 Metoprolol Succinate (ER) [Toprol 50 mg PO DAILY #30 tab 03/18/24 XL] Ketorolac [Toradol] 10 mg PO Q8HR #15 tab 09/01/24 Allergies Allergy/AdvReac Type Severity Reaction Status Date / Time No Known Allergies Allergy Verified 09/01/24 11:08 Review of Systems ROS Statement: Those systems with pertinent positive or pertinent negative responses have been documented in the HPI. ROS Other: All systems not noted in ROS Statement are negative. Past Medical History Past Medical History: Hyperlipidemia, Hypertension Additional Past Medical History / Comment(s): back pain History of Any Multi-Drug Resistant Organisms: None Reported Past Surgical History: No Surgical Hx Reported Past Psychological History: No Psychological Hx Reported Smoking Status: Current every day smoker Past Alcohol Use History: Occasional Past Drug Use History: Marijuana General Exam Limitations: no limitations General appearance: alert, in no apparent distress Head exam: Present: atraumatic, normocephalic, normal inspection Eye exam: Present: normal appearance, PERRL, EOMI. Absent: scleral icterus, conjunctival injection, periorbital swelling ENT exam: Present: normal exam, mucous membranes moist Neck exam: Present: normal inspection. Absent: tenderness, meningismus, lymphadenopathy Respiratory exam: Present: normal lung sounds bilaterally, chest wall tenderness (Left sided chest wall tenderness to palpation). Absent: respiratory distress, wheezes, rales, rhonchi, stridor Cardiovascular Exam: Present: regular rate, normal rhythm, normal heart sounds. Absent: systolic murmur, diastolic murmur, rubs, gallop, clicks GI/Abdominal exam: Present: soft, normal bowel sounds. Absent: distended, tenderness, guarding, rebound, rigid Extremities exam: Present: normal inspection, full ROM, normal capillary refill. Absent: tenderness, pedal edema, joint swelling, calf tenderness Back exam: Present: normal inspection Neurological exam: Present: alert, oriented X3 Psychiatric exam: Present: normal affect, normal mood Skin exam: Present: warm, dry, intact, normal color. Absent: rash Course Vital Signs 09/01/24 09/01/24 11:06 12:25 Temperature 97.7 F Pulse Rate 64 64 Respiratory 20 18 Rate Blood Pressure 190/106 110/64 O2 Sat by Pulse 99 98 Oximetry Medical Decision Making - Medical Decision Making Was pt. sent in by a medical professional or institution (, PA, HIM SPECIALIST, urgent care, hospital, or detention...) When possible be specific @ -[No] Did you speak to anyone other than the patient for history (EMS, parent, family, police, friend...)? What history was obtained from this source @ -[No] Did you review nursing and triage notes (agree or disagree)? Why? @ -[I reviewed and agree with nursing and triage notes] Were old charts reviewed (outside hosp., previous admission, EMS record, old EKG, old radiological studies, urgent care reports/EKG's, detention records)? Report findings @ -[No old charts were reviewed] Differential Diagnosis (chest pain, altered mental status, abdominal pain women, abdominal pain men, vaginal bleeding, weakness, fever, dyspnea, syncope, headache, dizziness, GI bleed, back pain, seizure, CVA, palpatations, mental health, musculoskeletal)? @ -Differential Dyspnea: Coronary syndrome, arrhythmia, tamponade, asthma, COPD, pulmonary embolism, pneumonia, pneumothorax, pulmonary effusion, anaphylaxis, diabetic ketoacidosis, flailed chest, pulmonary contusion, diaphragmatic rupture, anemia, neurom uscular, this is not meant to be an all-inclusive list. EKG interpreted by me (3pts min.). @ -EKG@1121 shows sinus rhythm rate 71, NM 180, QRS 94, QT/QTc 359/382 X-rays interpreted by me (1pt min.). @ -[None done] CT interpreted by me (1pt min.). @ -[None done] U/S interpreted by me (1pt. min.). @ -[None done] What testing was considered but not performed or refused? (CT, X-rays, U/S, labs)? Why? @ -[None] What meds were considered but not given or refused? Why? @ -[None] Did you discuss the management of the patient with other professionals (professionals i.e. , PA, HIM SPECIALIST, lab, RT, psych nurse, social services manager, commercial finance manager, teacher, certification officer, human services case manager)? Give summary @ -[No] Was smoking cessation discussed for >3mins.? @ -[No] Was critical care preformed (if so, how long)? @ -[No] Were there social determinants of health that impacted care today? How? (Homelessness, low income, unemployed, alcoholism, drug addiction, transportation, low edu. Level, literacy, decrease access to med. care, detention, rehab)? @ -[No] Was there de-escalation of care discussed even if they declined (Discuss DNR or withdrawal of care, Hospice)? DNR status @ -[No] What co-morbidities impacted this encounter? (DM, HTN, Smoking, COPD, CAD, Cancer, CVA, ARF, Chemo, Hep., AIDS, mental health diagnosis, sleep apnea, morbid obesity)? @ -[None] Was patient admitted / discharged? Hospital course, mention meds given and route, prescriptions, significant lab abnormalities, going to OR and other pe rtinent info. @ -[hospital course] Undiagnosed new problem with uncertain prognosis? @ -[No] Drug Therapy requiring intensive monitoring for toxicity (Heparin, Nitro, Insulin, Cardizem)? @ -[No] Were any procedures done? @ -[No] Diagnosis/symptom? @ -[default] Acute, or Chronic, or Acute on Chronic? @ -[default] Uncomplicated (without systemic symptoms) or Complicated (systemic symptoms)? @ -[default] Side effects of treatment? @ -[No] Exacerbation, Progression, or Severe Exacerbation? @ -[No] Poses a threat to life or bodily function? How? (Chest pain, [place], [place], pneumonia, PE, COPD, DKA, ARF, appy, cholecystitis, CVA, Diverticulitis, Homicidal, Suicidal, threat to staff... and all critical care pts) @ -[No] - Lab Data Result diagrams: 09/01/24 11:30 09/01/24 11:30 Lab Results 09/01/24 09/01/24 09/01/24 Range/Units 11:30 11:30 11:30 WBC 9.29 (4.50-10.00) 10*3/uL RBC 6.50 H (4.40-5.60) 10*6/uL Hgb 13.9 (13.0-17.0) g/dL Hct 42.6 (39.6-50.0) % MCV 65.5 L (80.0-97.0) fL MCH 21.4 L (27.0-32.0) pg MCHC 32.6 (32.0-37.0) g/dL Plt Count 260 (140-440) 10*3/uL Immature Gran % (Auto) 0.6 % Neutrophils % 56.6 % Lymphocytes % 27.6 % Monocytes % 11.4 % Eosinophils % 2.9 % Basophils % 0.9 % Immature Gran # 0.06 H (0.00-0.04) 10*3/uL Neutrophils # 5.26 (1.80-7.70) 10*3/uL Lymphocytes # 2.56 (0.90-5.00) 10*3/uL Monocytes # 1.06 H (0.20-1.00) 10*3/uL Eosinophils # 0.27 (0.04-0.35) 10*3/uL Basophils # 0.08 (0.00-0.10) 10*3/uL Immature Plt Fraction 8.3 H (1.1-6.1) % PT 10.3 (10.0-12.5) sec INR 0.9 (<1.2) APTT 23.4 (22.0-30.0) sec D-Dimer 0.26 (<0.60) mg/L FEU Sodium 138 (137-145) mmol/L Potassium 4.6 (3.5-5.1) mmol/L Chloride 103 (98-107) mmol/L Carbon Dioxide 23 (22-30) mmol/L Anion Gap 12 mmol/L BUN 17 (9-20) mg/dL Creatinine 0.84 (0.66-1.25) mg/dL Est GFR (CKD-EPI)AfAm >90 (>60 ml/min/1.73 sqM) Est GFR (CKD-EPI)NonAf >90 (>60 ml/min/1.73 sqM) Glucose 92 (74-99) mg/dL Calcium 10.0 (8.4-10.2) mg/dL Total Bilirubin 1.0 (0.2-1.3) mg/dL AST 26 (17-59) U/L ALT 17 (4-49) U/L Alkaline Phosphatase 78 (38-126) U/L Troponin I (0.000-0.034) ng/mL Total Protein 7.6 (6.3-8.2) g/dL Albumin 4.4 (3.5-5.0) g/dL Amylase (30-110) U/L Lipase (23-300) U/L Influenza Type A (PCR) (Not Detectd) Influenza Type B (PCR) (Not Detectd) RSV (PCR) (Not Detectd) SARS-CoV-2 (PCR) (Not Detectd) 09/01/24 09/01/24 09/01/24 Range/Units 11:30 11:30 12:36 WBC (4.50-10.00) 10*3/uL RBC (4.40-5.60) 10*6/uL Hgb (13.0-17.0) g/dL Hct (39.6-50.0) % MCV (80.0-97.0) fL MCH (27.0-32.0) pg MCHC (32.0-37.0) g/dL Plt Count (140-440) 10*3/uL Immature Gran % (Auto) % Neutrophils % % Lymphocytes % % Monocytes % % Eosinophils % % Basophils % % Immature Gran # (0.00-0.04) 10*3/uL Neutrophils # (1.80-7.70) 10*3/uL Lymphocytes # (0.90-5.00) 10*3/uL Monocytes # (0.20-1.00) 10*3/uL Eosinophils # (0.04-0.35) 10*3/uL Basophils # (0.00-0.10) 10*3/uL Immature Plt Fraction (1.1-6.1) % PT (10.0-12.5) sec INR (<1.2) APTT (22.0-30.0) sec D-Dimer (<0.60) mg/L FEU Sodium (137-145) mmol/L Potassium (3.5-5.1) mmol/L Chloride (98-107) mmol/L Carbon Dioxide (22-30) mmol/L Anion Gap mmol/L BUN (9-20) mg/dL Creatinine (0.66-1.25) mg/dL Est GFR (CKD-EPI)AfAm (>60 ml/min/1.73 sqM) Est GFR (CKD-EPI)NonAf (>60 ml/min/1.73 sqM) Glucose (74-99) mg/dL Calcium (8.4-10.2) mg/dL Total Bilirubin (0.2-1.3) mg/dL AST (17-59) U/L ALT (4-49) U/L Alkaline Phosphatase (38-126) U/L Troponin I <0.012 (0.000-0.034) ng/mL Total Protein (6.3-8.2) g/dL Albumin (3.5-5.0) g/dL Amylase 64 (30-110) U/L Lipase 183 (23-300) U/L Influenza Type A (PCR) Not Detected (Not Detectd) Influenza Type B (PCR) Not Detected (Not Detectd) RSV (PCR) Not Detected (Not Detectd) SARS-CoV-2 (PCR) Not Detected (Not Detectd) Disposition Clinical Impression: Chest wall pain Disposition: HOME SELF-CARE Condition: Stable Instructions (If sedation given, give patient instructions): Chest Pain (ED), Rib Contusion (ED) Additional Instructions: Please follow-up your doctor. Return to the emergency department for new or worsening symptoms. Is patient prescribed a controlled substance at d/c from ED?: No Referrals: Talia Gusman III, MD [Primary Care Provider] - 1-2 days
[2024-09-01 13:07] LABS: Amylase 64 U/L (30-110); Lipase 183 U/L (23-300)
[2024-09-01 13:27] LABS: RSV Not Detected (Not Detectd)
[2024-09-01] MEDS: KETOROLAC 15 MG/ML 1 ML VIAL IVP STA (14:11)
[2024-09-01 14:31] VITALS: BP 179/113; RESP 16
== END 2024-09-01 14:28 | disposition home or self-care (01) ==
LOC: EC 11:00
DX: R07.89 Other chest pain (principal); F17.200 Nicotine dependence, unspecified, uncomplicated
CPT/HCPCS: 36415; 93005; 85379; 80053; 82150; 83690; 84484; 85025; 85610; 85730; 87636; 71046; 99285; 96374; J1885